=== PATIENT | male | born 1960 | race Caucasian/White ===

== ENCOUNTER → 2017-05-24 | Outpatient (CLI) | payer OTHER ==
--- NOTE | 2017-05-24 08:06 | MR ---
EXAMINATION TYPE: MR ankle RT wo con DATE OF EXAM: 05/24/2017 COMPARISON: EXAMINATION TYPE: MR ankle RT wo con DATE OF EXAM: 05/24/2017 COMPARISON: NONE HISTORY: Right ankle pain per order. Additional symptoms of swelling for 3 weeks per patient. Standard multiplanar, multisequence MRI departmental protocol Multiplanar, multisequence images of the right ankle were acquired. FINDINGS: The distal Achilles tendon is intact and felt within normal limits. Visualized plantar fasc ia shows mild surrounding edema near calcaneal insertion. The peroneal brevis and longus tendons are intact and felt within normal limits. Extensor tendons ant eriorly are intact. The flexor tendons along posterior medial aspect of the ankle are intact. The FHL near posterior tibi otalar shows focus of increased signal sagittal image 8 could reflect focal partial tear at this leve l. There is oblique minimally displaced fracture through distal fibular diaphysis above mortise with ass ociated osseous contusion or bone marrow edema involving nearly entire visualized fibula. Medial and lateral malleoli are intact. Ankle mortise symmetry is preserved. There is associated intramuscular e andre involving the FHL muscle lateral fibers and some adjacent edema superiorly involving the posteri or lateral aspect of the EDL muscle fibers seen best axial image 39. Adjacent tibia is unremarkable. Anterior tibiofibular ligament is intact axial image 24. The anterior talofibular ligament is intact axial image 21. Medial deltoid ligament is intact. No significant soft tissue swelling at lateral mal leolus is seen. There is felt some loss of normal sinus tarsi fat, that remains present seen best sag ittal image 11. Hindfoot articulations are maintained. No suspicious edema at this level is seen. IMPRESSION: 1. There is acute minimally displaced transverse fracture distal fibular diaphysis with associated os seous contusion and adjacent intramuscular edema.
== END | disposition home or self-care (01) ==
LOC: RADMRIMAIN 07:00
PROVIDERS: ATTEND Family Medicine
DX: S82.421A Displaced transverse fracture of shaft of right fibula, initial encounter for closed fracture (principal)

== ENCOUNTER → 2022-02-27 | Outpatient (CLI) | payer OTHER ==
--- NOTE | 2022-02-27 10:17 | CT ---
EXAMINATION TYPE: CT angio chest DATE OF EXAM: 02/27/2022 COMPARISON: NONE HISTORY: Difficulty breathing upon exertion x6 months. CT DLP: 461.1 mGycm. Automated Exposure Control for Dose Reduction was Utilized. CONTRAST: CTA scan of the thorax is performed with IV Contrast, patient injected with 64ml mL of Isovue 370, pu lmonary embolism protocol. MIP Images are created on CT scanner and reviewed. FINDINGS: LUNGS: The lungs are grossly clear, there is no concerning parenchymal mass or nodule identified. T here is no pleural effusion or pneumothorax seen. The tracheobronchial tree is patent. MEDIASTINUM: There is satisfactory enhancement of the pulmonary artery and its branches, there is no CT evidence for pulmonary embolism. There are no greater than 1 cm hilar or mediastinal lymph nodes. No cardiomegaly or pericardial effusion is seen. At least moderate three-vessel coronary artery ca lcification which is noted marker for underlying coronary artery disease. OTHER: Slight scoliotic curvature in the thoracic spine. Small degree of subareolar gynecomastia is p resent bilaterally slightly more prominent on the left. IMPRESSION: No CTA evidence for acute pulmonary embolism. No acute pulmonary process.
== END | disposition home or self-care (01) ==
LOC: RADCTMAIN 08:54
PROVIDERS: ATTEND Internal Medicine Critical Care Medicine
DX: I26.99 Other pulmonary embolism without acute cor pulmonale (principal)
CPT/HCPCS: 71275; Q9967

== ENCOUNTER → 2022-03-28 | Outpatient (CLI) | payer OTHER ==
[2022-03-28 23:48] LABS: HCT 44.9 % (39.6-50.0); MCH 31.4 pg (27.0-32.0); MCHC 33.4 g/dL (32.0-37.0); MCV 94.1 fL (80.0-97.0); Mean Platelet Volume 10.1 fL (9.5-12.2); NRBC Per 100 WBC 0 /100 WBCS (0.0-0.0); Platelet Count 330 X 10*3/uL (140-440); RBC 4.77 X 10*6/uL (4.40-5.60); RDW 12.8 % (11.5-14.5); WBC 5.45 X 10*3/uL (4.50-10.00)
[2022-03-29 00:03] LABS: ALT 94 U/L (10-49); AST 39 U/L (14-35); BUN/Creat Ratio 13.67 Ratio (12.00-20.00); Blood Urea Nitrogen 12.3 mg/dL (9.0-27.0); Carbon Dioxide 25.4 mmol/L (20.0-27.5); Chloride 102 mmol/L (96-109); Chol/HDL Ratio 6.32 Ratio; Glucose 100 mg/dL (70-110); LDL Cholesterol,Calculated 153.3 mg/dL (0.0-131.0); Non-African American GFR(CKD) 90.6 (60.0-200.0); Potassium 4.7 mmol/L (3.5-5.5); Sodium 138 mmol/L (135-145)
== END | disposition home or self-care (01) ==
LOC: LABWHC1 15:25
PROVIDERS: ATTEND Internal Medicine Cardiovascular Disease
DX: E78.2 Mixed hyperlipidemia (principal); R94.39 Abnormal result of other cardiovascular function study
CPT/HCPCS: 36415; 80048; 80061; 84450; 84460; 85027

== ENCOUNTER 2022-03-29 06:56 | Day surgery (SDC) | payer OTHER ==
[~2022-03-29 06:56] MED LIST: ALPRAZolam 0.25 MG TAB PO PRN; ALPRAZolam 0.5 MG TAB PO PRN; ASPIRIN 325 MG TAB PO STA; NITROGLYCERIN SL TABS 0.4 MG TAB SUBLINGUAL PRN; SODIUM CHLORIDE 0.9% 1,000 ML in EMPTY BAG 1 BAG IV SCH
[2022-03-29] MEDS ORDERED: SODIUM CHLORIDE 0.9% 1,000 ML IV ONE ×2 (07:33→10:51)
[2022-03-29 07:37] LABS: Basophils # (A) 0.1 k/uL (0-0.2); Basophils % (A) 1 %; Eosinophils # (A) 0.2 k/uL (0-0.7); Eosinophils % (A) 4 %; HCT 43.1 % (39.0-53.0); Lymphocytes # (A) 1.3 k/uL (1.0-4.8); Lymphocytes % (A) 26 %; MCH 32.1 pg (25.0-35.0); MCHC 34.8 g/dL (31.0-37.0); Mean Platelet Volume 7.4; Monocytes # (A) 0.4 k/uL (0-1.0); Monocytes % (A) 8 %; Neutrophils # (A) 2.9 k/uL (1.3-7.7); Neutrophils % (A) 57 %; Platelet Count 301 k/uL (150-450); RBC 4.68 m/uL (4.30-5.90); RDW 13.1 % (11.5-15.5); WBC 5.1 k/uL (3.8-10.6)
[2022-03-29 07:46] LABS: African American GFR (CKD) >90 (>60 ml/min/1.73 sqM); Anion Gap 8 mmol/L; Blood Urea Nitrogen 19 mg/dL (9-20); Calcium 9.3 mg/dL (8.4-10.2); Carbon Dioxide 25 mmol/L (22-30); Chloride 107 mmol/L (98-107); Glucose 109 mg/dL (74-99); Non-African American GFR(CKD) >90 (>60 ml/min/1.73 sqM); Potassium 4.1 mmol/L (3.5-5.1); Sodium 140 mmol/L (137-145)
[2022-03-29] MEDS ORDERED: VERAPAMIL 2.5 MG/ML 2 ML AMP ONE (08:46)
[2022-03-29] MEDS ORDERED: fentaNYL (PF) 50 MCG/ML 2 ML AMP ONE (08:57)
[2022-03-29] MEDS ORDERED: LIDOCAINE 1% INJ 10MG/ML (5 ML VIAL-PF) SQ ONE (09:04)
[2022-03-29] MEDS ORDERED: MIDAZOLAM 2 MG/2 ML VIAL IV ONE (09:04)
[2022-03-29] MEDS ORDERED: fentaNYL (PF) 50 MCG/ML 2 ML AMP IV ONE (09:04)
[2022-03-29] MEDS ORDERED: HEPARIN SODIUM 1,000 UN/ML (10ML VL) IV ONE (09:13)
[2022-03-29] MEDS ORDERED: VERAPAMIL SYRINGE (5 MG/10 ML) INTRAARTER ONE (09:13)
[2022-03-29] MEDS ORDERED: PRASUGREL 10 MG TAB ONE (09:42)
[2022-03-29] MEDS: HEPARIN SODIUM 1,000 UN/ML (10ML VL) ONE ×5 (09:45→10:51)
[2022-03-29] MEDS ORDERED: PRASUGREL 10 MG TAB PO ONE (09:48)
[2022-03-29] MEDS: NITROGLYCERIN 1000MCG/10ML SYRINGE INTRACORON ONE ×2 (10:15→10:38)
[2022-03-29] MEDS ORDERED: HEPARIN SODIUM 1,000 UN/ML (10ML VL) ONE (10:50)
[2022-03-29] MEDS ORDERED: IOPAMIDOL-300 100ML BTL INJ ONE ×2 (10:52)
--- NOTE | 2022-03-29 11:06 | CC ---
CARDIAC CATHETERIZATION REPORT INDICATION: Unstable angina. PROCEDURE NOTE: After obtaining informed consent, left heart catheterization and coronary angiogram were performed via the right radial artery using size 3.5 right and left Akiko catheters. Hemodynamics were obtained using 3.5 right Akiko catheter. The patient tolerated the procedure well without any obvious immediate complications. The patient received moderate conscious sedation. Total sedation time was 22 minutes. Using modified Seldinger technique, right radial artery access was obtained and a 6- Cameroonian sheath was placed. Catheters and wires were floated into the ascending aorta under fluoroscopic guidance. The patient received 5 mg of verapamil and 5000 units of intravenous heparin per protocol. FINDINGS: 1. Hemodynamics: Left ventricular end-diastolic pressure is 14 mmHg. There is no significant gradient across the aortic valve. 2. Left ventriculogram: Left ventriculogram is not done. 3. Angiographic data: a.Right coronary artery is a large dominant vessel that shows a 60% to 70% stenosis as it bifurcates into PDA and PLV. Left main coronary artery is a normal-sized vessel and is free of stenosis, divides into left anterior descending coronary artery and circumflex coronary artery. Proximal LAD has a long area of stenosis that at its worst seems to be 95% with an area of plaque rupture. Circumflex coronary artery itself is free of significant disease. It gives off a large- caliber OM branch. The first OM has a 70% to 80% ostial stenosis. CONCLUSION: 95% stenosis involving proximal LAD, 60% to 70% stenosis involving distal RCA, and a 70% stenosis involving the OM branch. I talked to the patient about his treatment options including multivessel angioplasty versus bypass surgery with the patient, and I have opted for angioplasty with stent placement of proximal LAD with or without intervention of the right coronary artery and optimal medical therapy. The patient understands all the issues and is in agreement with the plans. MMODL / IJN: [id number] /
--- NOTE | 2022-03-29 11:10 | LTR ---
Dear Dr. Leigh: I performed cardiac catheterization on Robnison Lopez. A detailed catheterization note is enclosed for your records. This 61-year-old gentleman was sent to us by you for new onset exertional shortness of breath. He underwent a stress test, where he walked for 7 minutes on Geovanny protocol without chest pain and significant EKG changes due to which I performed a cardiac catheterization on him expeditiously, which revealed critical stenosis involving proximal LAD for which he will undergo angioplasty with stent placement. Thank you for giving us the privilege to participate in the care of this pleasant gentleman. MMMARYL / IJN: [id number] /
[2022-03-29] MEDS ORDERED: ZOLPIDEM 5 MG TAB PO PRN (11:59)
[2022-03-29] MEDS ORDERED: ATROPINE SULFATE 0.1 MG/ML 10ML SYRINGE IV PRN (11:59)
[2022-03-29] MEDS ORDERED: MAG HYDROX/AL HYDROX/SIMETH 30 ML CUP PO PRN (11:59)
[2022-03-29] MEDS ORDERED: RX INFO: IV CONTRAST WAS GIVEN 1 EACH MISC MISCELLANE PRN (11:59)
[2022-03-29 14:33] VITALS: BMI 29.7
[2022-03-29] MEDS: METOPROLOL TARTRATE 12.5 MG TAB PO SCH (20:08)
[2022-03-29] MEDS ORDERED: ATORVASTATIN 80 MG TAB PO SCH (21:00)
--- NOTE | 2022-03-29 21:27 | P.PRCINT ---
Percutaneous Coronary Int. - Percutaneous Coronary Intervention Percutaneous Coronary Intervention: PROCEDURES PERFORMED: Left coronary angiography, s/p cutting balloon angioplasty, PCI proximal LAD 3.5 x 15mm Xience CORDELL, post dilated with a 4.0 NC balloon, IVUS INDICATION: Abnormal stress test, unstable angina new over last few months PROCEDURE: After the risks, benefits and alternatives of the above mentioned procedure explained in detail with the patient, informed consent was obtained. Patient was taken to the catheterization lab and prepped and draped in usual fashion. A 6 Fr sheath had previously been placed in the right radial artery. Diagnostic images showed obstructive disease of LAD and small to moderate caliber OM1 as well as borderline 60-70% RCA disease. The decision was made to perform PCI of the LAD. Heparin was given for ACT > 250. A 6Fr CLS 3.5 guide was used to engage the left main. A 0.014 BMW wire was placed in the distal LAD. A 2nd BMW wire then a whisper wire were attempted to pass into the diagonal branch however given angle with plaque biasing wiring, was unable to wire easily. Next predilation was performed with a 3.0 x 12 then 3.0 x 15mm NC balloon. There was significant recoil with fibrotic lesion and therefore Angiosculpt cutting balloon was used with a 3.5 x 15mm balloon. Next a 3.5 x 15mm Xience CORDELL was placed. The proximal portion of the stent was post dilated with a 4.0 NC balloon. Next IVUS was performed which showed diffuse mild CAD with reference vessel approximately 3.25-3.5, with excellent stent apposition, no dissection. The wire was pulled and final angiograms were performed. The right radial sheath was removed and a TR band was placed with hemostasis achieved. The patient tolerated the procedure well. Patient was transported back to the post catheterization holding area in stable condition. Conscious Sedation: Patient was monitored under the direct supervision of vision of myself for conscious sedation using Versed and fentanyl for a total duration of 63 minutes HEMODYNAMICS: Aorta: 110/71 SELECTIVE CORONARY ARTERIOGRAPHY: LEFT MAIN: The left main is a large caliber vessel which trifurcates into the LAD, a ramus and circumflex. There is no significant stenosis. LEFT ANTERIOR DESCENDING CORONARY ARTERY: LAD is a large caliber vessel which wraps around to the apex. There is a 95% proximal LAD stenosis followed by diffuse 30-40% mid and distal LAD stenoses. The proximal LAD lesion involves a diagonal 1 small caliber vessel with 95% ostial diagonal stenosis. RAMUS INTERMEDIUS: The ramus is moderate caliber and has proximal 30% stenosis LEFT CIRCUMFLEX CORONARY ARTERY: Left circumflex is a moderate to large caliber vessel. The circumflex has proximal 30% stenosis and a small to moderate caliber ostial OM1 80% stenosis, OM2 40% stenosis. RIGHT CORONARY ARTERY: The right coronary artery was not imaged however has diffuse 20% stenosis and a more focal distal RCA 60-70% stenosis. FINAL IMPRESSION: 1. CAD as described above including 95% proximal LAD, OM1 80%, distal RCA 60- 70% stenosis. 2. S/p PCI proximal LAD 3.5 x 15mm Xience CORDELL, post dilated with a 4.0 NC balloon PLAN: 1. Aggressive risk factor modification per most recent ACC/AHA guidelines. 2. Continue dual antiplatelets with aspirin and Effient for 12 months. 3. Given location of ostial OM1 lesion may consider treating medically unless having persistent angina. If continued angina, consider stress testing or iFR RCA.
[2022-03-30] MEDS ORDERED: LEVOTHYROXINE 100 MCG TAB PO SCH (06:30)
[2022-03-30 08:03] LABS: Basophils % (A) 1 %; Eosinophils # (A) 0.1 k/uL (0-0.7); Eosinophils % (A) 2 %; HCT 41.5 % (39.0-53.0); HGB 14.4 gm/dL (13.0-17.5); Lymphocytes # (A) 0.8 k/uL (1.0-4.8); Lymphocytes % (A) 16 %; MCH 32.4 pg (25.0-35.0); MCHC 34.8 g/dL (31.0-37.0); MCV 93.2 fL (80.0-100.0); Mean Platelet Volume 7.4; Monocytes # (A) 0.5 k/uL (0-1.0); Monocytes % (A) 9 %; Neutrophils # (A) 3.5 k/uL (1.3-7.7); Neutrophils % (A) 68 %; Platelet Count 253 k/uL (150-450); RBC 4.46 m/uL (4.30-5.90); RDW 13.3 % (11.5-15.5); WBC 5.2 k/uL (3.8-10.6)
[2022-03-30 08:24] LABS: African American GFR (CKD) >90 (>60 ml/min/1.73 sqM); Anion Gap 5 mmol/L; Blood Urea Nitrogen 13 mg/dL (9-20); Carbon Dioxide 25 mmol/L (22-30); Chloride 109 mmol/L (98-107); Glucose 108 mg/dL (74-99); Non-African American GFR(CKD) >90 (>60 ml/min/1.73 sqM); Sodium 139 mmol/L (137-145)
[2022-03-30] MEDS: METOPROLOL TARTRATE 12.5 MG TAB PO SCH (08:34)
[2022-03-30 08:59] VITALS: RESP 17
[2022-03-30] MEDS ORDERED: PRASUGREL 10 MG TAB PO SCH (09:00)
[2022-03-30] MEDS ORDERED: ASPIRIN 81 MG PO SCH (09:00)
[2022-03-30 09:01] VITALS: BP 150/76; PULSE 63; TEMP 97.7
--- NOTE | 2022-03-30 11:14 | DS ---
DISCHARGE SUMMARY PROCEDURES PERFORMED: 1. Left heart catheterization. 2. Angioplasty with stent placement of LAD. HOSPITAL COURSE: This is a 61-year-old gentleman, who presented to me with symptoms of unstable angina, underwent cardiac catheterization that revealed severe stenosis involving proximal LAD for which he underwent angioplasty. He has an intermediate lesion in the distal right coronary artery, which will be treated with medical therapy at this time, and if he has persistent symptoms of angina, will undergo iFR. This morning, the patient is doing well and is free of symptoms, ambulating without any problems. PHYSICAL EXAMINATION: VITAL SIGNS: Stable. NECK: There is no jugular venous distention. Carotid upstroke is normal. CHEST: Reveals good air entry bilaterally. HEART: Reveals first and second heart sounds. No gallop. ABDOMEN: Soft. EXTREMITIES: Did not reveal any edema. Right radial artery access site appears normal. LABORATORY DATA: Labs show that the hemoglobin is 14.4, platelet count is 250, potassium is 4, creatinine is 0.7. MEDICATIONS AT DISCHARGE: 1. Aspirin. 2. Prasugrel. 3. Sublingual nitroglycerin on a p.r.n. basis. 4. Lipitor 80 mg daily. 5. Metoprolol. 6. Imdur 30 mg daily. FOLLOWUP: He will be followed up in my office in a week's time. MMODL / IJN: [id number] /
== END 2022-03-30 10:21 | disposition home or self-care (01) ==
LOC: CATHCVL 06:56 → 3SCARD 10:53 → CATHCVL 03-30 10:21
PROVIDERS: ATTEND Internal Medicine Cardiovascular Disease
DX: I25.110 Atherosclerotic heart disease of native coronary artery with unstable angina pectoris (principal); Z79.01 Long term (current) use of anticoagulants; Z79.02 Long term (current) use of antithrombotics/antiplatelets; Z79.82 Long term (current) use of aspirin; Z79.891 Long term (current) use of opiate analgesic; Z79.811 Long term (current) use of aromatase inhibitors
CPT/HCPCS: 92978; 93458; 80048 ×2; 85025 ×2; C9600; C1769 ×4; C1887; C1894; C1725 ×4; C1753; C1874; J2250; J2001; J3010; J1644; Q9967

== ENCOUNTER → 2022-04-12 | Outpatient (CLI) | payer OTHER ==
--- NOTE | 2022-04-12 11:27 | US ---
EXAMINATION TYPE: US thyroid st tissue head/neck DATE OF EXAM: 04/12/2022 COMPARISON: 01/09/2017 CLINICAL HISTORY: E03.9 HYPOTHYROIDISM. Hypothyroidism. Patient is on synthroid. GLAND SIZE: Right Lobe: 4.1 x 1.5 x 1.2 cm Overall Parenchyma: homogenous Left Lobe: 4.7 x 1.4 x 1.4 cm Overall Parenchyma: homogeneous Isthmus Thickness: 0.41 cm NODULES RIGHT: # of nodules measured on right: 1 1. 0.7 X 0.7 x 0.8 cm, mid mid, solid or almost completely solid, hypoechoic nodule, unclear if chuckie ler than wide, with ill-defined margins, without echogenic foci. Prior size: Not present -Significant posterior shadowing noted. LEFT: # of nodules measured on left: 1 1. 0.9 X 0.7 x 0.6 cm, upper medial, solid or almost completely solid, hypoechoic nodule, which is wider than tall, with smooth margins, without echogenic foci. Prior size: 0.7 x 0.5 x 0.7 cm ISTHMUS: # of nodules measured in the isthmus: 0 Bilateral neck scanned, no evidence of lymphadenopathy. IMPRESSION: 1. New right lobe thyroid nodule measuring 0.7 x 0.7 x 0.8 cm. There is significant posterior shadowi ng which significantly limits characterization. Thus, it is difficult to assign TR 4 versus TR 5. Giv en size less than 1 cm, follow-up ultrasound should be performed in one year. 2. Stable TR 4 left lobe thyroid nodule. Given size less than 1 cm, no follow-up is necessary.
== END | disposition home or self-care (01) ==
LOC: RADUSWWP 10:08
PROVIDERS: ATTEND Family Medicine
DX: E04.2 Nontoxic multinodular goiter (principal); E03.9 Hypothyroidism, unspecified
CPT/HCPCS: 76536

== ENCOUNTER 2022-10-23 08:09 | Inpatient (IN) | payer OTHER ==
[2022-10-23] MEDS ORDERED: NITROGLYCERIN OINT 1 INCH/GM PACKET TOPICAL STA (08:47)
[2022-10-23] MEDS ORDERED: ASPIRIN 81 MG PO STA (08:47)
--- NOTE | 2022-10-23 08:52 | ED ---
General Adult HPI - General Chief complaint: Chest Pain Stated complaint: sob, chest pain Time Seen by Provider: 10/23/22 08:20 Source: patient, RN notes reviewed, old records reviewed Mode of arrival: ambulatory Limitations: no limitations - History of Present Illness Initial comments: This is a 61-year-old male who presents emergency Department complaining of chest pain on and off for a week. Patient states she's also become very short of breath this morning he went out walking his dog and felt like he ran a marathon. Patient states this is the exact same symptoms he had back in April when they had to put a stent in his heart. Patient denies any diabetes high blood pressure high cholesterol or smoking. Patient states he doesn't very strong family history of heart disease. Patient denies any abdominal pain patient denies nausea vomiting diarrhea. Patient denies any lightheadedness dizziness. Patient denies any numbness or weakness. - Related Data Home Medications Medication Instructions Recorded Confirmed Aspirin 81 mg PO DAILY 03/28/22 10/23/22 Levothyroxine Sodium [Synthroid] 100 mcg PO DAILY 03/28/22 10/23/22 Isosorbide Mononitrate ER [Imdur] 30 mg PO DAILY 10/23/22 10/23/22 Metoprolol Succinate (ER) [Toprol 25 mg PO DAILY 10/23/22 10/23/22 Xl] Previous Rx's Medication Instructions Recorded Atorvastatin Calcium [Lipitor] 80 mg PO HS #90 tablet 03/30/22 Nitroglycerin Sl Tabs [Nitrostat] 0.4 mg SUBLINGUAL Q5M PRN #100 tab 03/30/22 Prasugrel [Effient] 10 mg PO DAILY #90 tablet 03/30/22 Allergies Allergy/AdvReac Type Severity Reaction Status Date / Time No Known Allergies Allergy Verified 10/23/22 08:57 Review of Systems ROS Statement: Those systems with pertinent positive or pertinent negative responses have been documented in the HPI. ROS Other: All systems not noted in ROS Statement are negative. Past Medical History Past Medical History: No Reported History, Thyroid Disorder History of Any Multi-Drug Resistant Organisms: None Reported Past Surgical History: Appendectomy, Heart Catheterization With Stent Additional Past Surgical History / Comment(s): stent april 2022. Past Anesthesia/Blood Transfusion Reactions: No Reported Reaction Past Psychological History: No Psychological Hx Reported Smoking Status: Former smoker Past Alcohol Use History: Occasional Past Drug Use History: Marijuana - Past Family History Mother Additional Family Medical History / Comment(s): due to alcoholism General Exam - General Exam Comments Initial Comments: GENERAL: Patient is well-developed and well-nourished. Patient is nontoxic and well- hydrated and is in mild distress. ENT: Neck is soft and supple. No significant lymphadenopathy is noted. Oropharynx is clear. Moist mucous membranes. Neck has full range of motion without eliciting any pain. EYES: The sclera were anicteric and conjunctiva were pink and moist. Extraocular movements were intact and pupils were equal round and reactive to light. Eyelids were unremarkable. PULMONARY: Unlabored respirations. Good breath sounds bilaterally. No audible rales rhonchi or wheezing was noted. CARDIOVASCULAR: There is a regular rate and rhythm without any murmurs gallops or rubs. ABDOMEN: Soft and nontender with normal bowel sounds. SKIN: Skin is clear with no lesions or rashes and otherwise unremarkable. NEUROLOGIC: Patient is alert and oriented x3. Cranial nerves II through XII are grossly intact. Motor and sensory are also intact. Normal speech, volume and content. Symmetrical smile. MUSCULOSKELETAL: Normal extremities with adequate strength and full range of motion. No lower extremity swelling or edema. No calf tenderness. LYMPHATICS: No significant lymphadenopathy is noted PSYCHIATRIC: Normal psychiatric evaluation. Limitations: no limitations Course Vital Signs 10/23/22 10/23/22 10/23/22 08:16 09:03 10:00 Temperature 98 F Pulse Rate 60 59 L 74 Respiratory 18 14 16 Rate Blood Pressure 134/83 131/90 140/96 O2 Sat by Pulse 98 98 96 Oximetry Medical Decision Making - Medical Decision Making EKG was interpreted by myself. EKG shows a sinus rhythm at 60 bpm NM interval is 180 QRSs 102 QT interval is 400 QTC is 402. Patient's EKG shows no ST segment elevation or depression. Was pt. sent in by a medical professional or institution (, PA, FLAME HARDENING MACHINE OPERATOR, urgent care, hospital, or longterm...) When possible be specific @ -No Did you speak to anyone other than the patient for history (EMS, parent, family, police, friend...)? What history was obtained from this source @ -No Did you review nursing and triage notes (agree or disagree)? Why? @ -I reviewed and agree with nursing and triage notes Were old charts reviewed (outside hosp., previous admission, EMS record, old EKG, old radiological studies, urgent care reports/EKG's, longterm records)? Report findings @ -I reviewed prior charts prior labwork on this patient Differential Diagnosis (chest pain, altered mental status, abdominal pain women, abdominal pain men, vaginal bleeding, weakness, fever, dyspnea, syncope, headache, dizziness, GI bleed, back pain, seizure, CVA, palpatations, mental health, musculoskeletal)? @ -Differential Chest Pain: Stable Angina, Unstable Angina, STEMI, NSTEMI Aortic Dissection, Pneumothorax, Musculoskeletal, Esophageal Spasm GERD, Cholecystitis, Pancreatitis, Zoster, this is not meant to be an all-inclusive list. EKG interpreted by me (3pts min.). @ -As above X-rays interpreted by me (1pt min.). @ -Chest x-ray showed no acute abnormality CT interpreted by me (1pt min.). @ -None done U/S interpreted by me (1pt. min.). @ -None done What testing was considered but not performed or refused? (CT, X-rays, U/S, labs)? Why? @ -None What meds were considered but not given or refused? Why? @ -None Did you discuss the management of the patient with other professionals (professionals i.e. , PA, FLAME HARDENING MACHINE OPERATOR, lab, RT, psych nurse, social media editor, attorney lawyer, teacher, chief lifestyle officer, case operator)? Give summary @ -I spoke with sounds physician's agreed to admit the patient admitted the patient wrote admitting orders Was smoking cessation discussed for >3mins.? @ -No Was critical care preformed (if so, how long)? @ -No Were there social determinants of health that impacted care today? How? (Homelessness, low income, unemployed, alcoholism, drug addiction, transportation, low edu. Level, literacy, decrease access to med. care, longterm, rehab)? @ -No Was there de-escalation of care discussed even if they declined (Discuss DNR or withdrawal of care, Hospice)? DNR status @ -No What co-morbidities impacted this encounter? (DM, HTN, Smoking, COPD, CAD, Cancer, CVA, ARF, Chemo, Hep., AIDS, mental health diagnosis, sleep apnea, morbid obesity)? @ -Hypertension, high cholesterol, CAD Was patient admitted / discharged? Hospital course, mention meds given and route, prescriptions, significant lab abnormalities, going to OR and other pertinent info. @ -Patient had no chest pain while in the emergency department but his symptoms were significant and similar to the prior symptoms he had when he had an [place]. He states initial troponin was negative I will repeat those troponin levels. I spoke with sounds physician's he agreed to admit the patient admitted the patient wrote admitting orders and I consult to cardiology Undiagnosed new problem with uncertain prognosis? @ -No Drug Therapy requiring intensive monitoring for toxicity (Heparin, Nitro, Insulin, Cardizem)? @ -No Were any procedures done? @ -No Diagnosis/symptom? @ -Chest pain Acute, or Chronic, or Acute on Chronic? @ -Acute Uncomplicated (without systemic symptoms) or Complicated (systemic symptoms)? @ -Complicated Side effects of treatment? @ -No Exacerbation, Progression, or Severe Exacerbation? @ -No Poses a threat to life or bodily function? How? (Chest pain, [place], [place], pneumonia, PE, COPD, DKA, ARF, appy, cholecystitis, CVA, Diverticulitis, Homicidal, Suicidal, threat to staff... and all critical care pts) @ -Yes this could lead to [place] which could lead to end organ dysfunction - Lab Data Result diagrams: 10/23/22 08:57 10/23/22 08:57 Lab Results 10/23/22 10/23/22 10/23/22 Range/Units 08:57 08:57 08:57 WBC 5.8 (3.8-10.6) k/uL RBC 4.55 (4.30-5.90) m/uL Hgb 14.7 (13.0-17.5) gm/dL Hct 42.4 (39.0-53.0) % MCV 93.0 (80.0-100.0) fL MCH 32.3 (25.0-35.0) pg MCHC 34.7 (31.0-37.0) g/dL RDW 13.0 (11.5-15.5) % Plt Count 258 (150-450) k/uL MPV 7.4 Neutrophils % 58 % Lymphocytes % 24 % Monocytes % 9 % Eosinophils % 5 % Basophils % 1 % Neutrophils # 3.4 (1.3-7.7) k/uL Lymphocytes # 1.4 (1.0-4.8) k/uL Monocytes # 0.5 (0-1.0) k/uL Eosinophils # 0.3 (0-0.7) k/uL Basophils # 0.0 (0-0.2) k/uL PT 10.1 (9.0-12.0) sec INR 0.9 (<1.2) APTT 23.8 (22.0-30.0) sec D-Dimer 0.22 (<0.60) mg/L FEU Sodium 139 (137-145) mmol/L Potassium 4.3 (3.5-5.1) mmol/L Chloride 109 H (98-107) mmol/L Carbon Dioxide 21 L (22-30) mmol/L Anion Gap 9 mmol/L BUN 16 (9-20) mg/dL Creatinine 0.70 (0.66-1.25) mg/dL Est GFR (CKD-EPI)AfAm >90 (>60 ml/min/1.73 sqM) Est GFR (CKD-EPI)NonAf >90 (>60 ml/min/1.73 sqM) Glucose 112 H (74-99) mg/dL Calcium 9.3 (8.4-10.2) mg/dL Magnesium 2.2 (1.6-2.3) mg/dL Total Bilirubin 0.5 (0.2-1.3) mg/dL AST 59 (17-59) U/L ALT 82 H (4-49) U/L Alkaline Phosphatase 81 (38-126) U/L Troponin I (0.000-0.034) ng/mL NT-Pro-B Natriuret Pep <20 pg/mL Total Protein 7.1 (6.3-8.2) g/dL Albumin 4.3 (3.5-5.0) g/dL 10/23/22 Range/Units 08:57 WBC (3.8-10.6) k/uL RBC (4.30-5.90) m/uL Hgb (13.0-17.5) gm/dL Hct (39.0-53.0) % MCV (80.0-100.0) fL MCH (25.0-35.0) pg MCHC (31.0-37.0) g/dL RDW (11.5-15.5) % Plt Count (150-450) k/uL MPV Neutrophils % % Lymphocytes % % Monocytes % % Eosinophils % % Basophils % % Neutrophils # (1.3-7.7) k/uL Lymphocytes # (1.0-4.8) k/uL Monocytes # (0-1.0) k/uL Eosinophils # (0-0.7) k/uL Basophils # (0-0.2) k/uL PT (9.0-12.0) sec INR (<1.2) APTT (22.0-30.0) sec D-Dimer (<0.60) mg/L FEU Sodium (137-145) mmol/L Potassium (3.5-5.1) mmol/L Chloride (98-107) mmol/L Carbon Dioxide (22-30) mmol/L Anion Gap mmol/L BUN (9-20) mg/dL Creatinine (0.66-1.25) mg/dL Est GFR (CKD-EPI)AfAm (>60 ml/min/1.73 sqM) Est GFR (CKD-EPI)NonAf (>60 ml/min/1.73 sqM) Glucose (74-99) mg/dL Calcium (8.4-10.2) mg/dL Magnesium (1.6-2.3) mg/dL Total Bilirubin (0.2-1.3) mg/dL AST (17-59) U/L ALT (4-49) U/L Alkaline Phosphatase (38-126) U/L Troponin I <0.012 (0.000-0.034) ng/mL NT-Pro-B Natriuret Pep pg/mL Total Protein (6.3-8.2) g/dL Albumin (3.5-5.0) g/dL Disposition Clinical Impression: Chest pain Disposition: ADMITTED IP TO THIS HOSP Referrals: Oscar Bates MD [Primary Care Provider] - 1-2 days Time of Disposition: 10:34
[2022-10-23 09:37] LABS: Basophils % (A) 1 %; Eosinophils # (A) 0.3 k/uL (0-0.7); Eosinophils % (A) 5 %; HCT 42.4 % (39.0-53.0); HGB 14.7 gm/dL (13.0-17.5); Lymphocytes # (A) 1.4 k/uL (1.0-4.8); Lymphocytes % (A) 24 %; MCH 32.3 pg (25.0-35.0); MCHC 34.7 g/dL (31.0-37.0); Mean Platelet Volume 7.4; Monocytes # (A) 0.5 k/uL (0-1.0); Monocytes % (A) 9 %; Neutrophils # (A) 3.4 k/uL (1.3-7.7); Neutrophils % (A) 58 %; Platelet Count 258 k/uL (150-450); RBC 4.55 m/uL (4.30-5.90); WBC 5.8 k/uL (3.8-10.6)
[2022-10-23 09:43] LABS: ALT 82 U/L (4-49); AST 59 U/L (17-59); African American GFR (CKD) >90 (>60 ml/min/1.73 sqM); Albumin 4.3 g/dL (3.5-5.0); Alkaline Phosphatase 81 U/L (38-126); Anion Gap 9 mmol/L; Blood Urea Nitrogen 16 mg/dL (9-20); Calcium 9.3 mg/dL (8.4-10.2); Carbon Dioxide 21 mmol/L (22-30); Chloride 109 mmol/L (98-107); Glucose 112 mg/dL (74-99); Magnesium 2.2 mg/dL (1.6-2.3); Non-African American GFR(CKD) >90 (>60 ml/min/1.73 sqM); Potassium 4.3 mmol/L (3.5-5.1); Sodium 139 mmol/L (137-145); Total Bilirubin 0.5 mg/dL (0.2-1.3); Total Protein 7.1 g/dL (6.3-8.2)
--- NOTE | 2022-10-23 09:47 | XR ---
EXAMINATION TYPE: XR chest 2V DATE OF EXAM: 10/23/2022 COMPARISON: NONE HISTORY: Shortness of breath TECHNIQUE: Frontal and lateral views of the chest are obtained. FINDINGS: Scattered senescent parenchymal changes noted. No evidence for infiltrate. No evidence for atelectasis. Heart size is stable. Mediastinal structures are stable and grossly unremarkable. No evidence for hilar prominence. Degenerative changes dorsal spine. IMPRESSION: 1. No evidence for acute pulmonary disease.
[2022-10-23 09:51] LABS: INR 0.9 (<1.2); NT-Pro-B-Type Natriuretic Pept <20 pg/mL; Partial Thromboplastin Time 23.8 sec (22.0-30.0); Prothrombin Time 10.1 sec (9.0-12.0)
[2022-10-23] MEDS ORDERED: NITROGLYCERIN SL TABS 0.4 MG TAB SUBLINGUAL PRN ×3 (11:00→12:28)
[2022-10-23] MEDS ORDERED: NITROGLYCERIN OINT 1 INCH/GM PACKET TOPICAL SCH (12:00)
[2022-10-23] MEDS ORDERED: ATORVASTATIN 80 MG TAB PO STA (12:04)
[2022-10-23] MEDS ORDERED: ASPIRIN 325 MG TAB PO STA (12:04)
[2022-10-23] MEDS ORDERED: ALPRAZolam 0.5 MG TAB PO PRN (12:04)
[2022-10-23] MEDS ORDERED: ALPRAZolam 0.25 MG TAB PO PRN (12:04)
[2022-10-23] MEDS ORDERED: HEPARIN SODIUM 1,000 UN/ML (10ML VL) IV PRN (12:05)
[2022-10-23] MEDS ORDERED: HEPARIN SODIUM 1,000 UN/ML (10ML VL) IV ONE (12:05)
[2022-10-23] MEDS ORDERED: HEPARIN SOD,PORK IN 0.45% NACL 25,000 UNIT in 0.45% NACL 1 250ML.BAG IV SCH (12:15)
--- NOTE | 2022-10-23 12:52 | P.HPIM ---
History of Present Illness H&P Date: 10/23/22 History of Presenting Illness: Patient is a very pleasant 61-year-old male with a past medical history of CAD status post stenting of LAD on 03/29/22 on dual antiplatelet therapy with aspirin and Effient, hypertension, hyperlipidemia, and hypothyroidism. Patient presented to the emergency department with a chief complaint of exertional chest pain and shortness of breath. Patient reports he is feeling similar to how he felt prior to having his initial stent placed at the beginning of this year. Patient states he first began to notice feeling more short of breath and tired/winded with normal walking or activity approximately one week ago and believes this has progressively worsened. Patient states he would feel increased tiredness, shortness of breath, and mild pain to his midsternal chest is walking down the drive to his mailbox. 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 P atient reports he has tried to stay active so this exertional shortness of breath and chest discomfort had him concerned. He denies having any other complaints including recent illnesses or exposure to known ill contacts, headache, lightheadedness, dizziness, palpitations, cough or congestion, nausea, vomiting, abdominal pain, or experiencing any numbness/tingling/weakness/swelling in his extremities. He underwent full evaluation in the emergency department. Vital signs reviewed. Temp 98.0F, heart rate 60, respiratory rate 18, blood pressure 134/83, and SpO2 of 98% on room air. Labs completed and reviewed. CBC and coagulation profile were unremarkable. D-dimer negative at 0.22. BMP showing slightly elevated chloride of 109 and low bicarb of 21. Glucose 112. Magnesium normal findings at 2.2. Liver profile normal findings with the exception of elevated ALT of 82. Initial troponin negative at less than 0.012 with proBNP less than 20. EKG completed showing normal sinus rhythm 60 bpm with no noted T-wave or ST abnormalities showing no signs of acute ischemia upon personal review and interpretation. Chest x-ray completed lungs appear clear showing no signs of acute cardiop ulmonary process and radiology report stating negative showing no evidence for acute pulmonary disease. Discussed patient complaints, laboratory analysis, and imaging results in detail with the ED physician. Patient to be admitted under our services to to cardiac unit with telemetry with consultation to cardiology. Review of systems: Pertinent positives and negatives as discussed in HPI, a complete review of systems was performed and all other systems are negative. Physical exam: Vital signs reviewed and stable. General: Nontoxic, no distress and appears stated age. Derm: Skin warm and dry, normal coloration for ethnicity. Head: Atraumatic, normocephalic and symmetric. Eyes: EOMs intact, no lid lag, and anicteric sclera Mouth: no lip lesions, mucus membranes moist Cardiovascular: regular rate and rhythm with normal S1S2, no murmur, positive posterior tibial pulses bilaterally, and cap refill < 2 seconds. Lungs: Respirations even, regular, and unlabored on room air. Lungs CTA bilaterally, no rhonchi, no rales, no wheezing, and no accessory muscle usage. Abdominal: soft, nontender to palpation, no guarding, no appreciable organomegaly Ext: ROM intact. No gross muscle atrophy, no edema, no contractures Neuro: Speech clear, face symmetrical and CN II-XII grossly intact with no noted focal neuro deficits Psych: Alert and oriented to person, place, time, and situation. Appropriate and pleasant affect. Assessment and Plan of Care: Patient is a pleasant 61-year-old male with a past medical history of CAD status post stenting of LAD on 03/29/22 on dual antiplatelet therapy with aspirin and Effient, hypertension, hyperlipidemia, and hypothyroidism. He presented to the emergency department with a chief complaint of exertional chest pain and shortness of breath progressively worsening over the past week. -Vital signs reviewed. Temp 98.0F, heart rate 60, respiratory rate 18, blood pressure 134/83, and SpO2 of 98% on room air. -Labs completed and reviewed. CBC and coagulation profile were unremarkable. D-dimer negative at 0.22. BMP showing slightly elevated chloride of 109 and low bicarb of 21. Glucose 112. Magnesium normal findings at 2.2. Liver profile normal findings with the exception of elevated ALT of 82. Initial troponin negative at less than 0.012 with proBNP less than 20. -EKG completed showing normal sinus rhythm 60 bpm with no noted T-wave or ST abnormalities showing no signs of acute ischemia upon personal review and interpretation. -Chest x-ray completed and personally reviewed lungs appear clear showing no signs of acute cardiopulmonary process and radiology report stating negative showing no evidence for acute pulmonary disease. -Discussed patient complaints, laboratory analysis, and imaging results in detail with the ED physician. -Patient to be admitted under our services to to cardiac unit with telemetry with consultation to cardiology. Unstable angina Exertional Chest pain and shortness of breath, rule out acute coronary event History of CAD status post stenting of LAD 03/29/22 Hypertension Hyperlipidemia -Cardiology consulted, discussed plan of care with cardiac GETTERING OPERATOR and plan is for patient to undergo cardiac cath tomorrow morning. -Patient given heparin bolus 2500 units and started on heparin infusion at 12 units/kg/hr for treatment of unstable angina. -Nitro-Bid Ointment applied -Telemetry monitoring -Trend troponins -Cardiac diet, NPO at midnight -Continue cardiac medication regimen including dual antiplatelet therapy with Aspirin 81 mg daily and Effient 10 mg daily, atorvastatin 80 mg daily, isosorbide mononitrate 30 mg daily and metoprolol 25 mg daily Hypothyroidism -Continue daily medication regimen with level thyroxine 100 g daily. The patient is admitted with an anticipated greater than 2 midnight stay for evaluation of exertional chest pain and shortness of breath CODE STATUS: Full code DVT prophylaxis: Heparin infusion Discussed with: Patient, patient's , ED physician, RN, and cardiac GETTERING OPERATOR Anticipated discharge date: Clinical course to determine Anticipated discharge place: Home Patient was seen independently by Nurse Practitioner. This document was prepared using [employer] dictation software. Please allow for errors in clin nurse while rare they do occur. Kang Garrett NP rendered care for this patient independently, reviewed the findings and plan as documented in the note above. I did not physically speak with or examine the patient on this date. Past Medical History Past Medical History: No Reported History, Thyroid Disorder History of Any Multi-Drug Resistant Organisms: None Reported Past Surgical History: Appendectomy, Heart Catheterization With Stent Additional Past Surgical History / Comment(s): stent april 2022. Past Anesthesia/Blood Transfusion Reactions: No Reported Reaction Past Psychological History: No Psychological Hx Reported Smoking Status: Former smoker Past Alcohol Use History: Occasional Past Drug Use History: Marijuana - Past Family History Mother Additional Family Medical History / Comment(s): due to alcoholism Medications and Allergies Home Medications Medication Instructions Recorded Confirmed Type Aspirin 81 mg PO DAILY 03/28/22 10/23/22 History Levothyroxine Sodium [Synthroid] 100 mcg PO DAILY 03/28/22 10/23/22 History Atorvastatin Calcium [Lipitor] 80 mg PO HS #90 tablet 03/30/22 10/23/22 Rx Nitroglycerin Sl Tabs [Nitrostat] 0.4 mg SUBLINGUAL Q5M PRN #100 tab 03/30/22 10/23/22 Rx Prasugrel [Effient] 10 mg PO DAILY #90 tablet 03/30/22 10/23/22 Rx Isosorbide Mononitrate ER [Imdur] 30 mg PO DAILY 10/23/22 10/23/22 History Metoprolol Succinate (ER) [Toprol 25 mg PO DAILY 10/23/22 10/23/22 History XL] Losartan [Cozaar] 25 mg PO DAILY #90 tab 10/25/22 Rx Allergies Allergy/AdvReac Type Severity Reaction Status Date / Time No Known Allergies Allergy Verified 10/23/22 08:57 Physical Exam Vitals: Vital Signs Temp Pulse Resp BP Pulse Ox 10/23/22 11:00 54 L 14 142/92 96 10/23/22 10:00 74 16 140/96 96 10/23/22 09:03 59 L 14 131/90 98 10/23/22 08:16 98 F 60 18 134/83 98 Intake and Output 10/22/22 10/23/22 10/23/22 22:59 06:59 14:59 Other: Weight 95.254 kg Results CBC & Chem 7: 10/24/22 07:50 10/25/22 05:42 Labs: Abnormal Lab Results - Last 24 Hours (Table) 10/23/22 Range/Units 08:57 Chloride 109 H (98-107) mmol/L Carbon Dioxide 21 L (22-30) mmol/L Glucose 112 H (74-99) mg/dL ALT 82 H (4-49) U/L
[2022-10-23] MEDS: ISOSORBIDE MONONITRATE ER 30 MG TAB.ER.24H PO SCH (13:26)
[2022-10-23] MEDS: PRASUGREL 10 MG TAB PO SCH (13:26)
[2022-10-23] MEDS: METOPROLOL SUCCINATE (ER) 25 MG TAB.ER.24H PO SCH (13:26)
[2022-10-23] MEDS: ATORVASTATIN 80 MG TAB PO SCH (22:07)
--- NOTE | 2022-10-23 23:07 | CONS ---
CONSULTATION HISTORY OF PRESENT ILLNESS: Mr. Robinson Lopez is a 61-year-old gentleman with history of hypertension, hyperlipidemia, and hypothyroidism. He has history of CAD and in March, he underwent a cardiac cath because of an abnormal stress test by Dr. Olmos, which revealed a proximal LAD significant stenosis of about 95% with moderate disease in distal RCA and circumflex. He had a stenting with a cutting balloon off proximal LAD with an excellent result. The distal LAD disease was about 60% and the obtuse marginal disease was also 70%. However, these were not further evaluated by FFR during the initial procedure on March of this year. However, following the March admission, he had a stress test that was normal per patient. He comes into the hospital with 3-day history of increasing shortness of breath and chest tightness with moderate effort strongly suggestive of angina. He is resting comfortably without any symptoms at the time of my evaluation. His initial EKG and troponin are normal, but symptoms strongly suggest unstable angina. PAST MEDICAL HISTORY: 1. CAD with stenting of LAD, has moderate disease in distal RCA and obtuse marginal branch. 2. Hypertension. 3. Hypothyroidism. PHYSICAL EXAMINATION: VITAL SIGNS: On examination, blood pressure is 140/70, pulse rate is about 70 per minute regular. HEENT: Unremarkable. Fundus was not examined by me. NECK: Supple. No JVD. I do not hear a carotid bruit. HEART: Reveals S1, S2 heard normally. No rub, murmur or gallop. LUNGS: Clear. ABDOMEN: Soft, nontender. MUSCULOSKELETAL: Lower extremities revealed normal pulses. No edema. CENTRAL NERVOUS SYSTEM: Normal. DIAGNOSTIC DATA: EKG revealed sinus mechanism, no acute changes. LABORATORY DATA: Laboratory data revealed no significant abnormalities and initial troponin is normal. IMPRESSION: 1. Unstable angina. 2. Hypertension. 3. Hyperlipidemia. 4. Hypothyroidism. 5. Status post stenting of proximal LAD performed by Dr. Saldivar in March of 2022. RECOMMENDATIONS: Given the patient's presentation with unstable angina, I am recommending that he should have a cardiac catheterization. I am recommending intravenous heparin. Resume all his home medications. We will see how he does, but I am recommending cardiac cath tomorrow to be performed by Dr. Olmos. I will speak to him. Risks, benefits, options, rationale were explained to the patient. He understands all details and wishes to proceed with the procedure. MMODL / IJN: [id number] /
[2022-10-24] MEDS: LEVOTHYROXINE 100 MCG TAB PO SCH (06:43)
[2022-10-24] MEDS ORDERED: HEPARIN SODIUM,PORCINE (1 ML) 2,500 UNIT in SODIUM CHLORIDE 0.9% 250 ML IRRIGATION PRN (07:00)
[2022-10-24] MEDS ORDERED: HEPARIN SODIUM,PORCINE 10,000 UNIT in SODIUM CHLORIDE 0.9% 1,000 ML IRRIGATION PRN (07:00)
[2022-10-24] MEDS ORDERED: ASPIRIN 325 MG TAB PO STA (07:59)
[2022-10-24 08:15] LABS: Partial Thromboplastin Time 57.2 sec (22.0-30.0); Prothrombin Time 10.8 sec (9.0-12.0)
[2022-10-24] MEDS ORDERED: ISOSORBIDE MONONITRATE ER 30 MG TAB.ER.24H PO SCH (09:00)
[2022-10-24] MEDS ORDERED: ASPIRIN 81 MG PO SCH (09:00)
[2022-10-24] MEDS ORDERED: METOPROLOL SUCCINATE (ER) 25 MG TAB.ER.24H PO SCH (09:00)
[2022-10-24] MEDS ORDERED: PRASUGREL 10 MG TAB PO SCH (09:00)
[2022-10-24] MEDS ORDERED: ASPIRIN 325 MG TAB PO SCH (09:00)
[2022-10-24] MEDS ORDERED: SODIUM CHLORIDE 0.9% 1,000 ML in EMPTY BAG 1 BAG IV ONE (09:06)
[2022-10-24] MEDS: METOPROLOL SUCCINATE (ER) 25 MG TAB.ER.24H PO SCH (09:10)
[2022-10-24] MEDS: ISOSORBIDE MONONITRATE ER 30 MG TAB.ER.24H PO SCH (09:10)
[2022-10-24] MEDS: PRASUGREL 10 MG TAB PO SCH (09:19)
[2022-10-24] MEDS ORDERED: ADENOSINE 90 MG in SODIUM CHLORIDE 0.9% 60 ML IVP ONE (11:45)
[2022-10-24] MEDS ORDERED: IV FLUID CONTINUATION 1,000 ML IV ONE (11:45)
[2022-10-24] MEDS ORDERED: MIDAZOLAM 2 MG/2 ML VIAL IVP ONE ×2 (12:04→13:41)
[2022-10-24] MEDS ORDERED: fentaNYL (PF) 50 MCG/ML 2 ML AMP IVP ONE ×2 (12:05→13:40)
[2022-10-24] MEDS ORDERED: LIDOCAINE 1% INJ 10MG/ML (5 ML VIAL-PF) SQ ONE (12:07)
[2022-10-24] MEDS ORDERED: VERAPAMIL SYRINGE (5 MG/10 ML) INTRAARTER ONE (12:09)
[2022-10-24] MEDS ORDERED: HEPARIN SODIUM 1,000 UN/ML (10ML VL) IVP ONE ×5 (12:15→13:27)
--- NOTE | 2022-10-24 12:17 | P.PN ---
Subjective Progress Note Date: 10/24/22 History of present illness: This is a 61-year-old male with past history of hypertension, hyperlipidemia, hypothyroidism, coronary artery disease status post cardiac cath in March of this year following abnormal stress test which revealed proximal LAD significant stenosis of 95% with moderate disease in the distal RCA and circumflex. Patient had stenting proximal LAD with excellent results. The distal LAD was about 60% and obtuse marginal 70%. These were not further evaluated by FFR during the in itial procedure in March. Following that, he had a stress test that was normal. Patient presents to the hospital with 3 day history of increasing shortness of breath and chest tightness with moderate effort strongly suggestive of ischemia. Patient has been scheduled for cardiac catheterization today with Dr. Cobb and this has been scheduled 11:30 today. Patient is seen in follow-up on the observation unit. Physical examination: Gen: This is a 61-year-old male. He is resting bed appears to be comfortable and in no acute distress. VS: reviewed HEENT: Head is atraumatic, normocephalic. Pupils equal, round. Sclerae is anicteric. NECK: Supple. No JVD. . LUNGS: Clear to auscultation. No wheezes or rhonchi. No intercostal retractions. HEART: Regular rate and rhythm. No murmur. EXTREMITIES: No pedal edema. NEUROLOGICAL: Patient is awake, alert and oriented x3. Assessment: Unstable angina Hypertension Hyperlipidemia Hypothyroidism History of coronary artery disease prior stenting of the proximal LAD by Dr. Saldivar in March 2022 Plan: Continue current cardiac medications Cardiac catheterization scheduled today at 11:30 Further recommendations to follow based upon clinical course Nurse practitioner note has been reviewed, I agree with documented findings and plan of care. Patient was seen and examined. Objective - Vital Signs Vital signs: Vital Signs Temp 97.8 F 10/24/22 02:40 Pulse 55 L 10/24/22 02:40 Resp 16 10/24/22 02:40 BP 133/72 10/24/22 02:40 Pulse Ox 96 10/24/22 02:40 FiO2 Intake & Output 10/23/22 10/24/22 10/24/22 18:59 06:59 18:59 Intake Total 171.976 Balance 171.976 Weight 95.254 kg Intake: Intake, IV Titration 171.976 Amount Heparin Sod,Pork in 0.45% 171.976 NaCl 25,000 unit In 0.45 % NaCl 1 250ml.bag @ 12 UNITS/KG/HR 11.43 mls/hr IV .[id number] [facility] Rx#: [id number] Other: # Voids 1 - Labs CBC & Chem 7: 10/23/22 08:57 10/23/22 08:57 Labs: Abnormal Lab Results - Last 24 Hours (Table) 10/23/22 10/23/22 10/24/22 Range/Units 08:57 18:17 00:21 APTT 32.1 H 69.6 H (22.0-30.0) sec Chloride 109 H (98-107) mmol/L Carbon Dioxide 21 L (22-30) mmol/L Glucose 112 H (74-99) mg/dL ALT 82 H (4-49) U/L 10/24/22 Range/Units 07:50 APTT 57.2 H (22.0-30.0) sec Chloride (98-107) mmol/L Carbon Dioxide (22-30) mmol/L Glucose (74-99) mg/dL ALT (4-49) U/L
[2022-10-24] MEDS ORDERED: NITROGLYCERIN 1000MCG/10ML SYRINGE INTRACORON ONE ×2 (13:14→13:40)
[2022-10-24] MEDS ORDERED: IOPAMIDOL-370 100ML BTL INJ ONE ×2 (13:34→13:54)
[2022-10-24 13:41] LABS: ALT 82 U/L (10-49); AST 45 U/L (14-35); Albumin 4.1 d/dL (3.8-4.9); Albumin/Globulin Ratio 2.05 Ratio (1.60-3.17); Alkaline Phosphatase 76 U/L (41-126); BUN/Creat Ratio 18.62 Ratio (12.00-20.00); Blood Urea Nitrogen 14.9 mg/dL (9.0-27.0); Calcium 9.2 mg/dL (8.7-10.3); Carbon Dioxide 21.7 mmol/L (21.6-31.8); Chloride 106 mmol/L (96-109); Chol/HDL Ratio 2.94 Ratio; Glucose 108 mg/dL (70-110); LDL Cholesterol,Calculated 49.3 mg/dL (0.0-131.0); Magnesium 2.1 mg/dL (1.5-2.4); Potassium 4.1 mmol/L (3.5-5.5); Sodium 139 mmol/L (135-145); Total Bilirubin 0.5 mg/dL (0.3-1.2); Total Protein 6.1 d/dL (6.2-8.2)
[2022-10-24] MEDS ORDERED: RX INFO: IV CONTRAST WAS GIVEN 1 EACH MISC MISCELLANE PRN (14:15)
[2022-10-24] MEDS ORDERED: SODIUM CHLORIDE 0.9% 1,000 ML in EMPTY BAG 1 BAG IV SCH (14:15)
[2022-10-24] MEDS ORDERED: MAG HYDROX/AL HYDROX/SIMETH 30 ML CUP PO PRN (14:15)
[2022-10-24] MEDS ORDERED: ZOLPIDEM 5 MG TAB PO PRN (14:15)
[2022-10-24] MEDS ORDERED: ATROPINE SULFATE 0.1 MG/ML 10ML SYRINGE IV PRN (14:15)
[2022-10-24 14:20] LABS: Basophils # (A) 0.06 X 10*3/uL (0.00-0.10); Eosinophils # (A) 0.32 X 10*3/uL (0.04-0.35); Eosinophils % (A) 5.6 %; HCT 40.8 % (39.6-50.0); HGB 14.1 d/dL (13.0-17.0); Lymphocytes # (A) 1.52 X 10*3/uL (0.90-5.00); Lymphocytes % (A) 26.4 %; MCH 32.1 pg (27.0-32.0); MCHC 34.6 d/dL (32.0-37.0); MCV 92.9 FL (80.0-97.0); Mean Platelet Volume 10.3 FL (9.5-12.2); Monocytes # (A) 0.61 X 10*3/uL (0.20-1.00); Monocytes % (A) 10.6 %; NRBC Per 100 WBC 0 X 10*3/uL (0.00-0.01); Neutrophils # (A) 3.23 X 10*3/uL (1.80-7.70); Neutrophils % (A) 56.2 %; Platelet Count 279 X 10*3/uL (140-440); RBC 4.39 X 10*6/uL (4.40-5.60); RDW 13.1 % (11.5-14.5); WBC 5.75 X 10*3/uL (4.50-10.00)
--- NOTE | 2022-10-24 14:21 | P.PRCINT ---
Percutaneous Coronary Int. - Percutaneous Coronary Intervention Percutaneous Coronary Intervention: PROCEDURES PERFORMED: Bilateral coronary angiography, iFR of LAD, iFR/FFR of RCA, PCI RCA with a 3.5 x 18mm Xience CORDELL, post dilated proximally with a 4.0 NC balloon INDICATION: Unstable angina, history of CAD CONSENT:I have discussed the risks, benefits and alternative therapies for the above-mentioned procedure and for both sedation/analgesia as well as necessary blood product administration, if indicated, as they pertain to this patient. The patient has indicated understanding and acceptance of the risks and procedures discussed. PROCEDURE: After the risks, benefits and alternatives of the above mentioned procedure explained in detail with the patient, informed consent was obtained. Patient was taken to the catheterization lab and prepped and draped in usual fashion and a 6-Senegalese sheath had been placed in the right radial artery previously. The decision was made to perform iFR of the LAD and RCA. Heparin was given. A 6-Senegalese CLS 4.0 guide was used engage the left main. A 0.014 pressure where his advanced in the proximal left main and normalized. It was then advanced to the mid LAD just past the 50th 60% mid LAD stenosis. iFR was performed and was normal at 0.94. Next, the decision was made to perform iFR of the RCA. A 6-[place]egalese AL 0.75 guide was used engage the RCA. A 0.014 pressure wire was advanced into the proximal RCA and normalized. It was then advanced into the distal RCA/PLV just past the lesion. iFR was normal at 0.95 however there were varying numbers even just throughout the 2-3 minutes that the wire was engaged. Therefore concern of more significant lesion. Therefore FFR was performed. With FFR, the lesion was abnormal within approximately 1 minute at 0.72. Therefore the decision was made to perform PCI of RCA. A 3.5 x 12 mm balloon was used to predilate the lesion however significant watermelloning occurred. Therefore a 3.5 and he scoped cutting balloon was used to predilate the lesion which was successful. Next a 3.5 x 18 mm Xience CORDELL was placed at the distal RCA. The proximal portion was postdilated with a 4.0 noncompliant balloon. Preintervention there was 70% stenosis and CAROL-3 flow and postintervention there was less than 10% stenosis with CAROL 3 flow. The right radial sheath was removed and a TR band was placed with hemostasis achieved. The patient tolerated the procedure well. Patient was transported back to the post catheterization holding area in stable condition. Conscious Sedation: Patient was monitored under the direct supervision of myself for conscious sedation using Versed and fentanyl for a total duration of 56 minutes HEMODYNAMICS: Aorta: 141/67 SELECTIVE CORONARY ARTERIOGRAPHY: LEFT MAIN: The left main is a large caliber vessel which bifurcates into the LAD and circumflex. There is no significant stenosis. LEFT ANTERIOR DESCENDING CORONARY ARTERY: LAD is a large caliber vessel which wraps around to the apex. There is a proximal LAD stent which is patent. There is a 95% ostial diagonal 1 stenosis at the jailed diagonal branch which appears similar to prior. Distal to the stent there is a mid LAD 50-60% stenosis followed by tandem 40-50% stenosis. LEFT CIRCUMFLEX CORONARY ARTERY: Left circumflex is a moderate caliber vessel diffuse mild luminal irregularities and OM1 is a ostial 85-90% stenosis.. RIGHT CORONARY ARTERY: The right coronary artery is a large caliber vessel which gives off a PDA and PLV branch and is the dominant vessel. There are diffuse 20-30% proximal and mid RCA stenoses and more focal distal 70% RCA stenosis. FINAL IMPRESSION: 1. CAD as described above including 50-60% mid LAD stenosis, 95% small caliber ostial diagonal 1 "jailed" stenosis, ostial OM1 85-90% stenosis, distal RCA 70% stenosis 2. iFR normal mid LAD 3. FFR abnormal RCA 4. S/p PCI RCA with a 3.5 x 18mm Xience CORDELL, post dilated proximally with a 4.0 NC balloon PLAN: 1. Aggressive risk factor modification per most recent ACC/AHA guidelines. 2. Continue dual antiplatelets with aspirin and Effient for 12 months
--- NOTE | 2022-10-24 15:28 | CC ---
CARDIAC CATHETERIZATION REPORT INDICATION: Unstable angina. PROCEDURE NOTE: After obtaining informed consent, left heart catheterization and coronary angiogram were performed via the right radial artery using standard Akiko catheters. The patient tolerated the procedure well without any obvious immediate complications. Received moderate conscious sedation. Total sedation time was 20 minutes. Right radial artery access was obtained using Seldinger technique. A 6-[place]ralt[place] sheath was placed. Catheters and wires were floated into the ascending aorta under fluoroscopic guidance. The patient received verapamil and heparin per protocol. The patient received 5000 units of heparin. A TR band will be used for hemostasis. FINDINGS: 1. HEMODYNAMICS: Left ventricular end-diastolic pressure is 16 mmHg. There is no significant gradient across the aortic valve. 2. LEFT VENTRICULOGRAM: Left ventriculogram is not performed. 3. ANGIOGRAPHIC DATA: a.Left main coronary artery: Left main coronary artery is a normal-sized vessel, appears calcified, but is free of significant stenosis. Divides into left anterior descending coronary artery and circumflex coronary artery. b.LAD: The previously-stented segment appears fine. Just distal to the stent, there is a 40% to 50% stenosis. c.Circumflex coronary artery is a nondominant vessel, gives off fair-caliber OM branches. The first OM shows an ostial 70% stenosis. d.Right coronary artery is a large dominant vessel. There is an 80% to 90% distal RCA lesion just prior to the bifurcation into PDA and PLV. CONCLUSION: Three-vessel coronary artery disease as described above with a patent stent within the LAD and a focal 80% to 90% stenosis involving distal right coronary artery and ostial stenosis involving the OM branch. PLAN: I am going to review the angiographic data with Dr. Saldivar, who performed the previous angioplasty, and decide on whether to attempt intervention of the right coronary artery and do an iFR of the LAD or refer him to Surgery. MMODL / IJN: [id number] /
[2022-10-24] MEDS ORDERED: ACETAMINOPHEN TAB 325 MG TAB PO PRN (17:08)
[2022-10-24] MEDS ORDERED: HYDROcodone/APAP 5-325MG 1 EACH TAB PO PRN (17:08)
--- NOTE | 2022-10-24 17:43 | P.PN ---
Subjective Progress Note Date: 10/24/22 History of Presenting Illness: Patient is a very pleasant 61-year-old male with a past medical history of CAD status post stenting of LAD on 03/29/22 on dual antiplatelet therapy with aspirin and Effient, hypertension, hyperlipidemia, and hypothyroidism. Patient presented to the emergency department with a chief complaint of exertional chest pain and shortness of breath. Patient reports he is feeling similar to how he felt prior to having his initial stent placed at the beginning of this year. Patient states he first began to notice feeling more short of breath and tired/winded with normal walking or activity approximately one week ago and believes this has progressively worsened. Patient states he would feel increased tiredness, shortness of breath, and mild pain to his midsternal chest is walking down the drive to his mailbox. 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 Patient reports he has tried to stay active so this exertional shortness of breath and chest discomfort had him concerned. He denies having any other complaints including recent illnesses or exposure to known ill contacts, headache, lightheadedness, dizziness, palpitations, cough or congestion, nausea, vomiting, abdominal pain, or experiencing any numbness/tingling/weakness/swelling in his extremities. He underwent full evaluation in the emergency department. Vital signs reviewed. Temp 98.0F, heart rate 60, respiratory rate 18, blood pressure 134/83, and SpO2 of 98% on room air. Labs completed and reviewed. CBC and coagulation profile were unremarkable. D-dimer negative at 0.22. BMP showing slightly elevated chloride of 109 and low bicarb of 21. Glucose 112. Magnesium normal findings at 2.2. Liver profile normal findings with the exception of elevated ALT of 82. Initial troponin negative at less than 0.012 with proBNP less than 20. EKG completed showing normal sinus rhythm 60 bpm with no noted T-wave or ST abnormalities showing no signs of acute ischemia upon personal review and interpretation. Chest x-ray completed lungs appear clear showing no signs of acute cardiopulmona ry process and radiology report stating negative showing no evidence for acute pulmonary disease. Patient was admitted under our services to to cardiac unit with telemetry with consultation to cardiology. Troponins were trended and all negative at less than 0.0123 draws. Patient was evaluated by customer insight analyst and underwent cardiac catheterization. Cardiac cath revealing multivessel coronary artery disease with 50-60% mid LAD stenosis, 95% small caliber ostial diagonal 1 jailed stenosis, ostial OM 85-90% stenosis, and distal RCA stenosis. and patient was found to have 70% stenosis of right RCA and underwent successful PCI with stenting. Patient to continue cardiac medication regimen including dual antiplatelet therapy with Aspirin 81 mg daily and Effient 10 mg daily, atorvastatin 80 mg daily, isosorbide mononitrate 30 mg daily and metoprolol 25 mg daily Physical exam: Patient seen and fully evaluated at bedside shortly after returning from cardiac cath. Patient reports pain to right wrist cardiac cath access site. TR band in place no signs of bleeding or hematoma at this time. Patient denies having any numbness/tingling in his hand. RN to continue to slowly release air off of TR band and patient may be medicated for pain management as needed. Vital signs reviewed and stable. General: Nontoxic, no distress and appears stated age. Derm: Skin warm and dry, normal coloration for ethnicity. Head: Atraumatic, normocephalic and symmetric. Eyes: EOMs intact, no lid lag, and anicteric sclera Mouth: no lip lesions, mucus membranes moist Cardiovascular: regular rate and rhythm with normal S1S2, no murmur, positive posterior tibial pulses bilaterally, and cap refill < 2 seconds. Lungs: Respirations even, regular, and unlabored on room air. Lungs CTA bilaterally, no rhonchi, no rales, no wheezing, and no accessory muscle usage. Abdominal: soft, nontender to palpation, no guarding, no appreciable organomegaly Ext: ROM intact. No gross muscle atrophy, no edema, no contractures Neuro: Speech clear, face symmetrical and CN II-XII grossly intact with no noted focal neuro deficits Psych: Alert and oriented to person, place, time, and situation. Appropriate and pleasant affect. Assessment and Plan of Care: Unstable angina Exertional Chest pain and shortness of breath, rule out acute coronary event History of CAD status post stenting of LAD 03/29/22 Hypertension Hyperlipidemia -Cardiology consulted anticipation for cardiac cath. -Cardiac cath revealing multivessel coronary artery disease with 50-60% mid LAD stenosis, 95% small caliber ostial diagonal 1 jailed stenosis, ostial OM 85-90% stenosis, and distal RCA stenosis. and patient was found to have 70% stenosis of right RCA and underwent successful PCI with stenting. -Patient to continue cardiac medication regimen including dual antiplatelet therapy with Aspirin 81 mg daily and Effient 10 mg daily, atorvastatin 80 mg daily, isosorbide mononitrate 30 mg daily and metoprolol 25 mg daily -Continue Telemetry monitoring -Cardiac diet Hypothyroidism -Continue daily medication regimen with level thyroxine 100 g daily. Data review: Morning labs completed and reviewed. CBC unremarkable. CMP revealing slightly elevated AST of 45 and ALT of 82 otherwise normal findings. Lipid profile unremarkable with the exception of low HDL of 39.10. Troponins were trended overnight all negative at less than 0.0123 draws. Repeat morning EKG completed showing sinus bradycardia at 58 bpm with no noted T-wave or ST abnormalities showing no signs of acute ischemia upon personal review and interpretation. CODE STATUS: Full code DVT prophylaxis: Heparin Discussed with: Patient, RN, and cardiac STOCK SPECULATOR Anticipated discharge date: Clinical course to determine Anticipated discharge place: Home Patient was seen independently by Nurse Practitioner. This document was prepared using [employer] dictation software. Please allow for errors in lime sludge mixer while rare they do occur. Kang Garrett, STOCK SPECULATOR rendered care for this patient independently, reviewed the findings and plan as documented in the note above. I did not physically speak with or examine the patient on this date. Objective - Vital Signs Vital signs: Vital Signs Temp 97.8 F 10/24/22 02:40 Pulse 55 L 10/24/22 02:40 Resp 16 10/24/22 02:40 BP 133/72 10/24/22 02:40 Pulse Ox 96 10/24/22 02:40 FiO2 Intake & Output 10/23/22 10/24/22 10/24/22 18:59 06:59 18:59 Intake Total 171.976 Balance 171.976 Weight 95.254 kg Intake: Intake, IV Titration 171.976 Amount Heparin Sod,Pork in 0.45% 171.976 NaCl 25,000 unit In 0.45 % NaCl 1 250ml.bag @ 12 UNITS/KG/HR 11.43 mls/hr IV .[id number] [facility] Rx#: [id number] Other: # Voids 1 - Labs CBC & Chem 7: 10/24/22 07:50 10/25/22 05:42 Labs: Abnormal Lab Results - Last 24 Hours (Table) 10/23/22 10/23/22 10/24/22 Range/Units 08:57 18:17 00:21 APTT 32.1 H 69.6 H (22.0-30.0) sec Chloride 109 H (98-107) mmol/L Carbon Dioxide 21 L (22-30) mmol/L Glucose 112 H (74-99) mg/dL ALT 82 H (4-49) U/L 10/24/22 Range/Units 07:50 APTT 57.2 H (22.0-30.0) sec Chloride (98-107) mmol/L Carbon Dioxide (22-30) mmol/L Glucose (74-99) mg/dL ALT (4-49) U/L
[2022-10-24] MEDS: ATORVASTATIN 80 MG TAB PO SCH (20:43)
[2022-10-25] MEDS: LEVOTHYROXINE 100 MCG TAB PO SCH (06:20)
[2022-10-25 06:31] LABS: African American GFR (CKD) >90 (>60 ml/min/1.73 sqM); Anion Gap 7 mmol/L; Blood Urea Nitrogen 12 mg/dL (9-20); Calcium 8.9 mg/dL (8.4-10.2); Carbon Dioxide 23 mmol/L (22-30); Chloride 107 mmol/L (98-107); Glucose 107 mg/dL (74-99); Non-African American GFR(CKD) >90 (>60 ml/min/1.73 sqM); Potassium 4.1 mmol/L (3.5-5.1); Sodium 137 mmol/L (137-145)
[2022-10-25 07:26] VITALS: RESP 18
[2022-10-25 07:41] VITALS: TEMP 98
[2022-10-25 07:44] VITALS: BP 135/83; PULSE 59
[2022-10-25] MEDS: ISOSORBIDE MONONITRATE ER 30 MG TAB.ER.24H PO SCH (08:58)
[2022-10-25] MEDS: METOPROLOL SUCCINATE (ER) 25 MG TAB.ER.24H PO SCH (08:58)
[2022-10-25] MEDS: PRASUGREL 10 MG TAB PO SCH (08:58)
[2022-10-25] MEDS ORDERED: ASPIRIN 81 MG PO SCH (09:00)
[2022-10-25] MEDS ORDERED: LOSARTAN 25 MG TAB PO SCH (09:00)
--- NOTE | 2022-10-25 10:13 | P.PN ---
Subjective Progress Note Date: 10/25/22 History of present illness: This is a 61-year-old male with past history of hypertension, hyperlipidemia, hypothyroidism, coronary artery disease status post cardiac cath in March of this year following abnormal stress test which revealed proximal LAD significant stenosis of 95% with moderate disease in the distal RCA and circumflex. Patient had stenting proximal LAD with excellent results. The distal LAD was about 60% and obtuse marginal 70%. These were not further evaluated by FFR during the in itial procedure in March. Following that, he had a stress test that was normal. Patient presents to the hospital with 3 day history of increasing shortness of breath and chest tightness with moderate effort strongly suggestive of ischemia. Patient has been scheduled for cardiac catheterization today with Dr. Cobb and this has been scheduled 11:30 today. Patient is seen in follow-up on the observation unit. 10/25 Yesterday, patient underwent cardiac catheterization that revealed CAD with 50- 60% mid LAD stenosis, 95% small caliber ostial diagonal 1 "jailed" stenosis, ostial OM1 85-90% stenosis, distal RCA 70% stenosis. iFR normal mid LAD. FFR abnormal RCA Patient subsequently underwent PCI RCA Xience CORDELL, post balloon dilation. Patient is seen in follow-up. He denies having any chest pain. No shortness of breath. No lightheadedness or dizziness. Blood pressure 135/83, heart rate is in the 50s. Repeat blood work reveals BUN 12 creatinine 0.69, potassium 4.1. Physical examination: Gen: This is a 61-year-old male. He is resting bed appears to be comfortable and in no acute distress. VS: reviewed HEENT: Head is atraumatic, normocephalic. Pupils equal, round. Sclerae is anicteric. NECK: Supple. No JVD. . LUNGS: Clear to auscultation. No wheezes or rhonchi. No intercostal retractions. HEART: Regular rate and rhythm. No murmur. EXTREMITIES: No pedal edema. NEUROLOGICAL: Patient is awake, alert and oriented x3. Assessment: Unstable angina secondary to coronary artery disease status post stent and balloon dilation of the RCA Hypertension Hyperlipidemia Hypothyroidism History of coronary artery disease prior stenting of the proximal LAD by Dr. Saldivar in March 2022 Plan: Continue current cardiac medications Losartan added for improved blood pressure control Patient is cleared from cardiology for discharge home and may follow-up in the office with Dr. Olmos in one week Nurse practitioner note has been reviewed, I agree with documented findings and plan of care. Patient was seen and examined. Objective - Vital Signs Vital signs: Vital Signs Temp 98 F 10/25/22 07:23 Pulse 59 L 10/25/22 07:23 Resp 18 10/25/22 07:23 BP 135/83 10/25/22 07:23 Pulse Ox 97 10/25/22 07:23 FiO2 Intake & Output 10/24/22 10/25/22 10/25/22 18:59 06:59 18:59 Intake Total 918.024 Output Total 0 Balance 918.024 Intake: IV 600 Intake, IV Titration 78.024 Amount Heparin Sod,Pork in 0.45% 78.024 NaCl 25,000 unit In 0.45 % NaCl 1 250ml.bag @ 12 UNITS/KG/HR 11.43 mls/hr IV .[id number] Rx#: [id number] Oral 240 Output: Urine 0 Other: # Voids 1 1 - Labs CBC & Chem 7: 10/24/22 07:50 10/25/22 05:42 Labs: Abnormal Lab Results - Last 24 Hours (Table) 10/24/22 10/24/22 10/25/22 Range/Units 07:50 07:50 05:42 RBC 4.39 L (4.40-5.60) X 10*6/uL MCH 32.1 H (27.0-32.0) pg Glucose 107 H (74-99) mg/dL AST 45 H (14-35) U/L ALT 82 H (10-49) U/L Total Protein 6.1 L (6.2-8.2) d/dL HDL Cholesterol 39.10 L (40.00-60.00) mg/dL
[2022-10-25 11:10] VITALS: BMI 28.5
--- NOTE | 2022-10-25 11:28 | P.DS ---
Providers Date of admission: 10/23/22 13:36 Expected date of discharge: 10/25/22 Attending physician: Nirav Rooney MD Consults: 10/23/22 11:00 Consult Physician Urgent Consulting Provider: Win Belle Consult Reason/Comments: Chest pain Do you want consulting provider notified?: Yes 10/24/22 14:15 Consult Physician Routine Consulting Provider: Win Belle Consult Reason/Comments: Post Interventional patient Do you want consulting provider notified?: Already Contacted Primary care physician: [facility] Course: Discharge Diagnosis: Unstable angina. Patient underwent cardiac catheterization on 10/24/22 revealing multivessel coronary artery disease with 50-60% mid LAD stenosis, 95% small caliber ostial diagonal 1 jailed stenosis, ostial OM 85-90% stenosis, and distal RCA stenosis was found to have 70% stenosis. Cardiac cath resulted in successful PCI with stenting of right RCA. Patient to continue cardiac medication regimen including dual antiplatelet therapy with Aspirin 81 mg daily and Effient 10 mg daily, atorvastatin 80 mg daily, isosorbide mononitrate 30 mg daily and metoprolol 25 mg daily. In addition to this current cardiac medication regimen patient was also started on losartan 25 mg daily. Patient to follow up outpatient with PCP in 1-2 days and with sap architect next week. Multivessel coronary artery disease status post stenting 2 (LAD 03/29/22 and RCA 10/24/22) Exertional Chest pain and shortness of breath, secondary to unstable angina Hypertension Hyperlipidemia Hypothyroidism. Continue daily medication regimen with level thyroxine 100 g daily. Hospital Course: Patient is a very pleasant 61-year-old male with a past medical history of CAD status post stenting of LAD on 03/29/22 on dual antiplatelet therapy with aspirin and Effient, hypertension, hyperlipidemia, and hypothyroidism. Patient presen arlet to the emergency department on 10/23/22 with a chief complaint of exertional chest pain and shortness of breath progressively worsening over the past week which he reported was similar to how he felt prior to having his initial stent placed at the beginning of this year. He underwent full evaluation in the emergency department. Vital signs stable upon arrival. Labs completed and reviewed. CBC and coagulation profile were unremarkable. D-dimer negative at 0.22. BMP showing slightly elevated chloride of 109 and low bicarb of 21. Glucose 112. Magnesium normal findings at 2.2. Liver profile normal findings with the exception of elevated ALT of 82. Initial troponin negative at less than 0.012 with proBNP less than 20. EKG completed showing normal sinus rhythm 60 bpm with no noted T-wave or ST abnormalities showing no signs of acute ischemia upon personal review and interpretation. Chest x-ray completed lungs appear clear showing no signs of acute cardiopulmonary process and radiology report stating negative showing no evidence for acute pulmonary disease. Patient was admitted under our services to to cardiac unit with telemetry with consultation to cardiology. Troponins were trended overnight and all negative at less than 0.0123 draws. Patient was evaluated by sap architect and underwent cardiac catheterization on 10/24/22. Cardiac cath revealied multivessel coronary artery disease with 50-60% mid LAD stenosis, 95% small caliber ostial diagonal 1 "jailed" stenosis, ostial OM 85-90% stenosis, and distal RCA stenosis was found to have 70% stenosis. Cardiac catheterization resulted in successful PCI with stenting of right RCA. Cardiology recommending patient be started on losartan 25 mg daily and follow-up outpatient in their office next week. Medically, patient stable at this time and free from any complaints or concerns. Cardiac cath access site right wrist showing no signs of bruising, bleeding, or hematoma. Vital signs unremarkable. In addition to newly added losartan 25 mg daily, Patient to also continue cardiac medication regimen including dual antiplatelet therapy with Aspirin 81 mg daily and Effient 10 mg daily, atorvastatin 80 mg daily, isosorbide mononitrate 30 mg daily and metoprolol 25 mg daily. Patient to follow up outpatient with PCP in 1-2 days and cardiology as scheduled next week. Discharge instructions explained in detail at bedside to patient's and patient. Physical exam: Vital signs reviewed and stable. General: Nontoxic, no distress and appears stated age. Derm: Skin warm and dry, normal coloration for ethnicity. Head: Atraumatic, normocephalic and symmetric. Eyes: EOMs intact, no lid lag, and anicteric sclera Mouth: no lip lesions, mucus membranes moist Cardiovascular: regular rate and rhythm with normal S1S2, no murmur, positive posterior tibial pulses bilaterally, and cap refill < 2 seconds. Lungs: Respirations even, regular, and unlabored on room air. Lungs CTA bilaterally, no rhonchi, no rales, no wheezing, and no accessory muscle usage. Abdominal: soft, nontender to palpation, no guarding, no appreciable organomegaly Ext: ROM intact. No gross muscle atrophy, no edema, no contractures Neuro: Speech clear, face symmetrical and CN II-XII grossly intact with no noted focal neuro deficits Psych: Alert and oriented to person, place, time, and situation. Appropriate and pleasant affect. A total of 38 minutes of time were spent preparing this complex discharge summary. Pt was discharged on 10/25/22 at 11:27 AM Patient was seen independently by Nurse Practitioner. This document was prepared using [employer] dictation software. Please allow for errors in senior software manager while rare they do occur. Kang Garrett NP rendered care for this patient independently, reviewed the findings and plan as documented in the note above. I did not physically speak with or examine the patient on this date. Patient Condition at Discharge: Stable Plan - Discharge Summary New Discharge Prescriptions: New Losartan [Cozaar] 25 mg PO DAILY #90 tab Continue Aspirin 81 mg PO DAILY Nitroglycerin Sl Tabs [Nitrostat] 0.4 mg SUBLINGUAL Q5M PRN #100 tab PRN Reason: Chest Pain Metoprolol Succinate (ER) [Toprol XL] 25 mg PO DAILY Levothyroxine Sodium [Synthroid] 100 mcg PO DAILY Prasugrel [Effient] 10 mg PO DAILY #90 tablet Atorvastatin Calcium [Lipitor] 80 mg PO HS #90 tablet Isosorbide Mononitrate ER [Imdur] 30 mg PO DAILY Discharge Medication List Aspirin 81 mg PO DAILY 03/28/22 [History] Levothyroxine Sodium [Synthroid] 100 mcg PO DAILY 03/28/22 [History] Atorvastatin Calcium [Lipitor] 80 mg PO HS #90 tablet 03/30/22 [Rx] Nitroglycerin Sl Tabs [Nitrostat] 0.4 mg SUBLINGUAL Q5M PRN #100 tab 03/30/22 [Rx] Prasugrel [Effient] 10 mg PO DAILY #90 tablet 03/30/22 [Rx] Isosorbide Mononitrate ER [Imdur] 30 mg PO DAILY 10/23/22 [History] Metoprolol Succinate (ER) [Toprol XL] 25 mg PO DAILY 10/23/22 [History] Losartan [Cozaar] 25 mg PO DAILY #90 tab 10/25/22 [Rx] Follow up Appointment(s)/Referral(s): Oscar Bates MD [Primary Care Provider] - 1-2 days Nish Olmos MD [STAFF PHYSICIAN] - 11/01/22 8:00 am Patient Instructions/Handouts: *Surgery [facility] - After Heart Catheterization - Vessel Crew Member Instructions, Cardiac Rehabilitation (GEN), Heart Catheterization (DC) Activity/Diet/Wound Care/Special Instructions: Just some important facts for you to understand about your discharge and medicatios....... Aspirin as anti-platelet therapy - Aspirin lessens the chance of heart attack and stroke. It helps prevent blood clots from forming, allowing the blood to flow more easily. Each day, you will take one 81 mg (non-enteric coated) tablet daily. Do not stop unless instructed by your doctor. Anti-platelet Therapy. -In addition to aspirin, you will take one additional anti-platelet medication daily. This will help prevent a clot from forming in your stent: Prasugrel (Effient) -You will need to take your anti-platelet medicine every day for 12 months -Please consult your heart doctor before you stop this medicine. -They may want you to continue for a longer period of time. Statins -A statin medication lowers cholesterol levels in the blood. This helps slow the progression of heart disease. - Please take your statin medication as prescribed by your doctor. -You may be taking one of the following statins: Atorvastatin Beta blockers Your Medication: Metoprolol Is a medication that protects your heart from stress and can prevent future heart attacks. It can slow your heart rate. It can take weeks for your body to get used to a beta eliza. The dose may need to be changed a few times as your body adjusts Angiotensin receptor eliza (ARB) Your medication: Losartan is an angiotensin receptor eliza in the ER used to reduce cardiovascular events and decrease the risk of developing diabetes, these medications are also known to prevent left ventricular remodeling after you have suffered a myocardial infarction. Do not stop taking these medicines without talking to your doctor. -Take all other medicines as directed by your doctor. Do not take any extra aspirin or ibuprofen. They can increase your risk of bleeding. Many [id number] drugs contain aspirin. If you are unsure about what the drug contains, check with your pharmacist before taking it. -For mild discomfort, you may take plain Tylenol (acetaminophen). Follow dose directions, but do not take more than 4,000 mg of acetaminophen in 24 hours. Contact your doctor right away or go to the nearest hospital Emergency Room if you have: -Severe angina or chest pain. (This may be a sign of a problem with your stent.) -Excessive bruising, blood in urine/stool or black tarry stools. Healthy LifeStyle It is important to keep a heart healthy lifestyle. This can improve your long- term health and decrease your risk for heart attacks. -Managing your blood cholesterol, blood pressure, weight, and stress. -The importance of regular exercise. -Heart Healthy Diet: Include more plants in your diet. Eat lots of fresh vegetables and fresh fruits. Eat good fats: plant based oils, avocado, nuts, beans, legumes. Eat more seafood. Limit Meat. Switch to whole grains. -Avoid fried foods and animal fats and processed meats Follow up with your PCP and [facility] Thank you for allowing us to participate in your care, it was truly a pleasure having you for our patient!!! Discharge Disposition: HOME SELF-CARE
== END 2022-10-25 13:42 | disposition home or self-care (01) | DRG 247 ==
LOC: EC 08:09 → 6NMEDSUR 11:00 → OBSVTOIN 13:36 → 6NMEDSUR 14:12
PROVIDERS: ADMIT Student in an Organized Health Care Education/Training Program; ATTEND Student in an Organized Health Care Education/Training Program
PROC: 0270346 Dilation of Coronary Artery, One Artery, Bifurcation, with Drug-eluting Intraluminal Device, Percutaneous Approach (ICD-10-PCS; principal; 2022-10-24 09:00)
PROC: 4A033BC Measurement of Arterial Pressure, Coronary, Percutaneous Approach (ICD-10-PCS; principal; 2022-10-24 09:00)
PROC: 4A023N7 Measurement of Cardiac Sampling and Pressure, Left Heart, Percutaneous Approach (ICD-10-PCS; 2022-10-24 09:00)
PROC: B2111ZZ Fluoroscopy of Multiple Coronary Arteries using Low Osmolar Contrast (ICD-10-PCS; 2022-10-24 09:00)
DX: T82.897A Other specified complication of cardiac prosthetic devices, implants and grafts, initial encounter (principal); I25.110 Atherosclerotic heart disease of native coronary artery with unstable angina pectoris; I25.84 Coronary atherosclerosis due to calcified coronary lesion; E03.9 Hypothyroidism, unspecified; E78.00 Pure hypercholesterolemia, unspecified; I10 Essential (primary) hypertension; R74.01 Elevation of levels of liver transaminase levels; Z79.82 Long term (current) use of aspirin; Z79.890 Hormone replacement therapy; Z79.02 Long term (current) use of antithrombotics/antiplatelets; Z79.899 Other long term (current) drug therapy; Z87.891 Personal history of nicotine dependence; Z95.5 Presence of coronary angioplasty implant and graft; Y84.0 Cardiac catheterization as the cause of abnormal reaction of the patient, or of later complication, without mention of misadventure at the time of the procedure
CPT/HCPCS: 36415; 71046; 80048; 80053; 80061; 83735; 83880; 84484; 85025; 85379; 85610; 85730; 93005; 93458; 93571; 93799; 96365; 96366; 96375; 99285

== ENCOUNTER → 2022-12-05 | Outpatient (CLI) | payer OTHER ==
[2022-12-05 11:24] LABS: HCT 41.6 % (39.6-50.0); HGB 14.2 d/dL (13.0-17.0); MCH 31.1 pg (27.0-32.0); MCHC 34.1 d/dL (32.0-37.0); Mean Platelet Volume 9.9 FL (9.5-12.2); NRBC Per 100 WBC 0 X 10*3/uL (0.00-0.01); Platelet Count 264 X 10*3/uL (140-440); RBC 4.57 X 10*6/uL (4.40-5.60); RDW 12.6 % (11.5-14.5); WBC 4.36 X 10*3/uL (4.50-10.00)
[2022-12-05 11:41] LABS: ALT 56 U/L (10-49); AST 31 U/L (14-35); Albumin 4.5 d/dL (3.8-4.9); Albumin/Globulin Ratio 2.37 Ratio (1.60-3.17); Alkaline Phosphatase 80 U/L (41-126); BUN/Creat Ratio 18.12 Ratio (12.00-20.00); Blood Urea Nitrogen 14.5 mg/dL (9.0-27.0); Calcium 9.4 mg/dL (8.7-10.3); Carbon Dioxide 24.3 mmol/L (21.6-31.8); Chloride 104 mmol/L (96-109); Chol/HDL Ratio 2.85 Ratio; Globulin 1.9 d/dL (1.6-3.3); Glucose 118 mg/dL (70-110); Potassium 4.1 mmol/L (3.5-5.5); Prostate Specific Antigen 1.36 ng/mL (0.000-4.500); Sodium 139 mmol/L (135-145); T4, Free (Free Thyroxine) 1.48 ng/dL (0.80-1.80); Total Bilirubin 0.9 mg/dL (0.3-1.2); Total Protein 6.4 d/dL (6.2-8.2)
== END | disposition home or self-care (01) ==
LOC: LABWHC1 08:07
PROVIDERS: ATTEND Family Medicine
DX: Z00.01 Encounter for general adult medical examination with abnormal findings (principal); E03.9 Hypothyroidism, unspecified
CPT/HCPCS: 36415; 80053; 80061; 84153; 84439; 84443; 84481; 85027

== ENCOUNTER → 2023-01-31 | Outpatient (CLI) | payer OTHER ==
--- NOTE | 2023-01-31 11:42 | P.PAINPG ---
PQRS Measure Charge Sheet Comment: HISTORY OF PRESENT ILLNESS: A 62 yr old male as a referral from [facility] presents today w severe and chronic LBP secondary to DDD, spondylosis and facet arthropathy without myelopathy for evaluation. Pt states pain level is provoked at 8 /10 in intensity, constant, localized in the lower lumbar spine, predominantly axial, sharp in character w occasional shooting pain towards the RLE. Pain is provoked by standing from a sitting position. Pain is alleviated by PT x wks which he is currently in, chiropractic treatments semi weekly x wks which he is currently in, heat, ice, topical THC, reclining and rest. Oswestry axial pain score at 24. PMH: OA, Hypothyroid Disorder PSH: Appendectomy, Heart Catheterization With Stent (2022) SH: Former tobacco user, Occasional ETOH use, Cannabis use FH: Mo- Alcoholism/ . All: See list Meds: See list REVIEW OF ORGAN SYSTEMS: CONSTITUTIONAL: No fevers or chills. No recent weight loss. NEUROLOGICAL: + numbness and tingling along the distal extremities. No seizure disorders or headaches. MUSCULOSKELETAL: + pain PSYCHIATRIC: Denies current depression or suicidal thoughts. Physical Examinations : Constitutional : Cooperative , not in acute distress . Neurologic : Cranial nerve II to XII intact. No focal neurological deficits. Psychiatric : alert & oriented x 3. Matching mood & appropriate affect. Judgment & insight intact. Musculoskeletal : Cervical Spine Motor strength in the deltoid and biceps: Normal right side. Normal Left side Motor strength biceps and the wrist extensors: Normal right side . Normal left side Motor strength in the triceps muscle: Normal right side. Normal left side Deep tendon reflexes: Normal at the biceps. Normal at Brachioradialis. Normal at triceps Vertebral body tenderness to deep palpation over Cervical facet loading test: positive bilaterally Spurling test: positive bilaterally Neck distraction test: positive bilaterally Elier sign: positive bilaterally Lumbar spine Motor strength lower extremities ,thigh and legs 5/5 Right side , 5/5 Left side Deep tendon reflexes : Normal Knee Jerk. Normal Ankle Jerk Vertebral body tenderness over L3 Lima Test positive over R L3-L4 Lumbar facet Loading Test: positive Right / positive Left Range of motion of the lumbar spine Flexion 30 degrees, extension 10 degrees Straight Leg Raise test: Left/ Right positive at degree Mikala test: positive right / positive left. Severe tenderness over the Sacroiliac joint on the Right / Left sides Gaenslen test: positive bilaterally Seated flexion test: positive bilaterally. Sacral spine : Severe tenderness over the Sacroiliac joint: right side / left side Range of motion: Flexion of the lumbar spine <60 degrees Range of motion: Extension of the lumbar spine <20 degrees Gaenslen's Test positive Mikala test: positive right side / left side Thigh Thrust Test Sacral Thrust Test Imaging: MRI noncontrast of the lumbar spine from 10/28/22 reviewed Assessment/ Plan : Lumbar DDD Recommendation of CORINNA R paramedian L3-L4 #1. May need a series of injections for optimal pain relief. Risks, benefits of procedure discussed and patient verbalized understanding. Admits to anti- coagulant use or medical history of diabetes. Protocol for discontinuation/ continuation of medications dawna procedure discussed. Minimal anesthesia provided, if clinically indicated, consisting of Versed and Fentanyl. All questions answered. I have spent greater than 30 minutes on patient care today. Dr Vogel was available by phone for the evaluation of this patient. The time was used to review the medical records including relevant urine studies and Prescription history (MAPs), review of the available imaging, evaluation and examination of the patient, coordination of care with the medical staff and if applicable referring physicians, as well as creation of the medical record Home Medications: Ambulatory Orders Aspirin 81 mg PO DAILY 03/28/22 Levothyroxine Sodium [Synthroid] 100 mcg PO DAILY 03/28/22 Atorvastatin Calcium [Lipitor] 80 mg PO HS #90 tablet 03/30/22 Nitroglycerin Sl Tabs [Nitrostat] 0.4 mg SUBLINGUAL Q5M PRN #100 tab 03/30/22 Prasugrel [Effient] 10 mg PO DAILY #90 tablet 03/30/22 Isosorbide Mononitrate ER [Imdur] 30 mg PO DAILY 10/23/22 Metoprolol Succinate (ER) [Toprol XL] 25 mg PO DAILY 10/23/22 Losartan [Cozaar] 25 mg PO DAILY #90 tab 10/25/22 Controlled Substance Measures - Controlled Substance Measures Is patient prescribed a controlled substance at discharge?: No
[2023-01-31 12:39] VITALS: BP 144/85; PULSE 94; RESP 15; TEMP 98.5
== END ==
LOC: PNWHC3 10:56
PROVIDERS: ATTEND Specialist
DX: M51.16 Intervertebral disc disorders with radiculopathy, lumbar region (principal); M47.26 Other spondylosis with radiculopathy, lumbar region; M19.90 Unspecified osteoarthritis, unspecified site; E03.9 Hypothyroidism, unspecified; Z79.82 Long term (current) use of aspirin; Z79.890 Hormone replacement therapy; Z87.891 Personal history of nicotine dependence
CPT/HCPCS: 99211

== ENCOUNTER 2023-06-25 11:37 | Emergency (ER) | payer OTHER ==
[2023-06-25 11:50] VITALS: RESP 18; TEMP 98.3
--- NOTE | 2023-06-25 12:25 | ED ---
General Adult HPI - General Chief complaint: Chest Pain Stated complaint: Chest pain, syncope Time Seen by Provider: 06/25/23 11:56 Source: patient Mode of arrival: wheelchair Limitations: no limitations - History of Present Illness Initial comments: Dictation was produced using [employer] dictation software. please excuse any grammatical, word or spelling errors. Chief Complaint: 62-year-old male presents with presyncope History of Present Illness: Patient 62-year-old male he woke up feeling at his baseline. However throughout the morning he started to feel as if the room was spinning. States that his symptoms are triggered whenever he tries to stand or bend forward. States that he had 3 episodes today were he started to feel dizzy. Denies any shortness of breath. States that he did feel some chest pressure. Does have history of coronary artery stents. The ROS documented in this emergency department record has been reviewed and confirmed by me. Those systems with pertinent positive or negative responses have been documented in the HPI. All other systems are other negative and/or noncontributory. - Related Data Home Medications Medication Instructions Recorded Confirmed Aspirin 81 mg PO DAILY 03/28/22 10/23/22 Levothyroxine Sodium [Synthroid] 100 mcg PO DAILY 03/28/22 10/23/22 Isosorbide Mononitrate ER [Imdur] 30 mg PO DAILY 10/23/22 10/23/22 Metoprolol Succinate (ER) [Toprol 25 mg PO DAILY 10/23/22 10/23/22 XL] Previous Rx's Medication Instructions Recorded Atorvastatin Calcium [Lipitor] 80 mg PO HS #90 tablet 03/30/22 Nitroglycerin Sl Tabs [Nitrostat] 0.4 mg SUBLINGUAL Q5M PRN #100 tab 03/30/22 Prasugrel [Effient] 10 mg PO DAILY #90 tablet 03/30/22 Losartan [Cozaar] 25 mg PO DAILY #90 tab 10/25/22 Meclizine [Antivert] 25 mg PO TID PRN #15 tab 06/25/23 Allergies Allergy/AdvReac Type Severity Reaction Status Date / Time No Known Allergies Allergy Verified 06/25/23 11:42 Review of Systems ROS Statement: Those systems with pertinent positive or pertinent negative responses have been documented in the HPI. ROS Other: All systems not noted in ROS Statement are negative. Past Medical History Past Medical History: No Reported History, Thyroid Disorder History of Any Multi-Drug Resistant Organisms: None Reported Past Surgical History: Appendectomy, Heart Catheterization With Stent Additional Past Surgical History / Comment(s): stent april 2022. Past Anesthesia/Blood Transfusion Reactions: No Reported Reaction Date of Last Stent Placement:: apr 2022 Past Psychological History: No Psychological Hx Reported Smoking Status: Former smoker Past Alcohol Use History: Occasional Past Drug Use History: Marijuana - Past Family History Mother Additional Family Medical History / Comment(s): due to alcoholism General Exam - General Exam Comments Initial Comments: PHYSICAL EXAM: General Impression: Alert and oriented x3, not in acute distress HEENT: Normocephalic atraumatic, extra-ocular movements intact, pupils equal and reactive to light bilaterally, mucous membranes moist. Cardiovascular: Heart regular rate and rhythm Chest: Able to complete full sentences, no retractions, no tachypnea Abdomen: abdomen soft, non-tender, non-distended, no organomegaly Musculoskeletal: Pulses present and equal in all extremities, no peripheral edema Motor: no focal deficits noted Neurological: CN II-XII grossly intact, no focal motor or sensory deficits noted Skin: Intact with no visualized rashes Psych: Normal affect and mood Limitations: no limitations Course Vital Signs 06/25/23 06/25/23 11:38 13:37 Temperature 98.3 F Pulse Rate 107 H Respiratory 18 Rate Blood Pressure 133/83 Blood Pressure 122/88 [Sitting] Blood Pressure 119/86 [Standing] Blood Pressure 123/89 [Supine] O2 Sat by Pulse 97 Oximetry EKG Findings - EKG Comments: EKG Findings:: My EKG interpretation: Ventricular rate 93, sinus rhythm,. 186, cures 93, QTc 381. No AR prolongation, no QTC prolongation, no ST or T-wave changes noted. Overall, this EKG is unremarkable Medical Decision Making - Medical Decision Making Was pt. sent in by a medical professional or institution (, PA, SPEECH AND HEARING CLINIC DIRECTOR, urgent care, hospital, or residential...) When possible be specific @ -No Did you speak to anyone other than the patient for history (EMS, parent, family, police, friend...)? What history was obtained from this source @ -No Did you review nursing and triage notes (agree or disagree)? Why? @ -I reviewed and agree with nursing and triage notes Were old charts reviewed (outside hosp., previous admission, EMS record, old EKG, old radiological studies, urgent care reports/EKG's, residential records)? Report findings @ -No old charts were reviewed Differential Diagnosis (chest pain, altered mental status, abdominal pain women, abdominal pain men, vaginal bleeding, musculoskeletal, weakness, fever, dyspnea, syncope, headache, dizziness, GI bleed, back pain, seizure, CVA, palpatations, mental health)? @ -Differential Dizziness: Benign paroxysmal positional Vertigo, Menieres disease, otitis media, acoustic neuroma, vertebrobasilar insufficiency, cerebellar stroke, encephalitis, hypovolemic, arrhythmia, coronary artery syndrome, anemia, this is not meant to be an all-inclusive list EKG interpreted by me (3pts min.). @ -See above X-rays interpreted by me (1pt min.). @ -None done CT interpreted by me (1pt min.). @ -None done U/S interpreted by me (1pt. min.). @ -None done What testing was considered but not performed or refused? (CT, X-rays, U/S, labs)? Why? @ -None What meds were considered but not given or refused? Why? @ -None Did you discuss the management of the patient with other professionals (professionals i.e. , PA, SPEECH AND HEARING CLINIC DIRECTOR, lab, RT, psych nurse, protective services social worker, certified orthotist practice manager, teacher, radio officer, insurance case manager)? Give summary @ -No Was smoking cessation discussed for >3mins.? @ -No Was critical care preformed (if so, how long)? @ -No Were there social determinants of health that impacted care today? How? (Homelessness, low income, unemployed, alcoholism, drug addiction, transportation, low edu. Level, literacy, decrease access to med. care, fpc, rehab)? @ -No Was there de-escalation of care discussed even if they declined (Discuss DNR or withdrawal of care, Hospice)? DNR status @ -No What co-morbidities impacted this encounter? (DM, HTN, Smoking, COPD, CAD, Cancer, CVA, ARF, Chemo, Hep., AIDS, mental health diagnosis, sleep apnea, morbid obesity)? @ -None Was patient admitted / discharged? Hospital course, mention meds given and route, prescriptions, significant lab abnormalities, going to OR and other pertinent info. @ -62-year-old male presents emergency department with what sounds like positional dizziness. He does report some vertigo. Vital signs upon arrival are within acceptable limits. Orthostatic vital signs are normal. Laboratory e valuation is unremarkable. Troponin is negative. Patient given Antivert with resolution of symptoms. Patient ambulated at the bedside states to feel at baseline. Patient discharged advised follow-up with primary care doctor. Prescription provided for Antivert. Undiagnosed new problem with uncertain prognosis? @ -No Drug Therapy requiring intensive monitoring for toxicity (Heparin, Nitro, Ins ulin, Cardizem)? @ -No Were any procedures done? @ -No Diagnosis/symptom? Acute, or Chronic, or Acute on Chronic? Uncomplicated (without systemic symptoms) or Complicated (systemic symptoms)? @ -Positional vertigo Side effects of treatment? @ -No Exacerbation, Progression, or Severe Exacerbation? @ -No Poses a threat to life or bodily function? How? (Chest pain, USA, ND, pneumonia, PE, COPD, DKA, ARF, appy, cholecystitis, CVA, Diverticulitis, Homicidal, Suicidal, threat to staff... and all critical care pts) @ -No - Lab Data Result diagrams: 06/25/23 12:30 06/25/23 12:30 Lab Results 06/25/23 06/25/23 06/25/23 Range/Units 12:30 12:30 12:30 WBC 6.1 (3.8-10.6) k/uL RBC 4.87 (4.30-5.90) m/uL Hgb 15.5 (13.0-17.5) gm/dL Hct 45.6 (39.0-53.0) % MCV 93.7 (80.0-100.0) fL MCH 31.8 (25.0-35.0) pg MCHC 34.0 (31.0-37.0) g/dL RDW 13.0 (11.5-15.5) % Plt Count 314 (150-450) k/uL MPV 7.4 Neutrophils % 64 % Lymphocytes % 24 % Monocytes % 8 % Eosinophils % 2 % Basophils % 1 % Neutrophils # 3.9 (1.3-7.7) k/uL Lymphocytes # 1.5 (1.0-4.8) k/uL Monocytes # 0.5 (0-1.0) k/uL Eosinophils # 0.1 (0-0.7) k/uL Basophils # 0.1 (0-0.2) k/uL PT 10.8 (10.0-12.5) sec INR 1.0 (<1.2) APTT 24.0 (22.0-30.0) sec Sodium 140 (137-145) mmol/L Potassium 4.0 (3.5-5.1) mmol/L Chloride 109 H (98-107) mmol/L Carbon Dioxide 21 L (22-30) mmol/L Anion Gap 10 mmol/L BUN 16 (9-20) mg/dL Creatinine 0.75 (0.66-1.25) mg/dL Est GFR (CKD-EPI)AfAm >90 (>60 ml/min/1.73 sqM) Est GFR (CKD-EPI)NonAf >90 (>60 ml/min/1.73 sqM) Glucose 140 H (74-99) mg/dL Calcium 10.0 (8.4-10.2) mg/dL Magnesium 2.1 (1.6-2.3) mg/dL Total Bilirubin 0.9 (0.2-1.3) mg/dL AST 47 (17-59) U/L ALT 78 H (4-49) U/L Alkaline Phosphatase 67 (38-126) U/L Troponin I (0.000-0.034) ng/mL Total Protein 7.1 (6.3-8.2) g/dL Albumin 4.4 (3.5-5.0) g/dL 06/25/23 Range/Units 12:30 WBC (3.8-10.6) k/uL RBC (4.30-5.90) m/uL Hgb (13.0-17.5) gm/dL Hct (39.0-53.0) % MCV (80.0-100.0) fL MCH (25.0-35.0) pg MCHC (31.0-37.0) g/dL RDW (11.5-15.5) % Plt Count (150-450) k/uL MPV Neutrophils % % Lymphocytes % % Monocytes % % Eosinophils % % Basophils % % Neutrophils # (1.3-7.7) k/uL Lymphocytes # (1.0-4.8) k/uL Monocytes # (0-1.0) k/uL Eosinophils # (0-0.7) k/uL Basophils # (0-0.2) k/uL PT (10.0-12.5) sec INR (<1.2) APTT (22.0-30.0) sec Sodium (137-145) mmol/L Potassium (3.5-5.1) mmol/L Chloride (98-107) mmol/L Carbon Dioxide (22-30) mmol/L Anion Gap mmol/L BUN (9-20) mg/dL Creatinine (0.66-1.25) mg/dL Est GFR (CKD-EPI)AfAm (>60 ml/min/1.73 sqM) Est GFR (CKD-EPI)NonAf (>60 ml/min/1.73 sqM) Glucose (74-99) mg/dL Calcium (8.4-10.2) mg/dL Magnesium (1.6-2.3) mg/dL Total Bilirubin (0.2-1.3) mg/dL AST (17-59) U/L ALT (4-49) U/L Alkaline Phosphatase (38-126) U/L Troponin I <0.012 (0.000-0.034) ng/mL Total Protein (6.3-8.2) g/dL Albumin (3.5-5.0) g/dL Disposition Clinical Impression: BPPV (benign paroxysmal positional vertigo) Disposition: HOME SELF-CARE Condition: Good Instructions (If sedation given, give patient instructions): Vertigo (ED) Prescriptions: Meclizine [Antivert] 25 mg PO TID PRN #15 tab PRN Reason: dizziness Is patient prescribed a controlled substance at d/c from ED?: No Referrals: Oscar Bates MD [STAFF PHYSICIAN] - 1-2 days Time of Disposition: 14:23
[2023-06-25 12:46] LABS: Basophils # (A) 0.1 k/uL (0-0.2); Basophils % (A) 1 %; Eosinophils # (A) 0.1 k/uL (0-0.7); Eosinophils % (A) 2 %; HCT 45.6 % (39.0-53.0); HGB 15.5 gm/dL (13.0-17.5); Lymphocytes # (A) 1.5 k/uL (1.0-4.8); Lymphocytes % (A) 24 %; MCH 31.8 pg (25.0-35.0); MCV 93.7 fL (80.0-100.0); Mean Platelet Volume 7.4; Monocytes # (A) 0.5 k/uL (0-1.0); Monocytes % (A) 8 %; Neutrophils # (A) 3.9 k/uL (1.3-7.7); Neutrophils % (A) 64 %; Platelet Count 314 k/uL (150-450); RBC 4.87 m/uL (4.30-5.90); WBC 6.1 k/uL (3.8-10.6)
--- NOTE | 2023-06-25 12:46 | XR ---
EXAMINATION TYPE: XR chest 2V DATE OF EXAM: 06/25/2023 COMPARISON: 10/23/2022 TECHNIQUE: PA and lateral views submitted. HISTORY: Chest pain FINDINGS: The lungs are clear and there is no pneumothorax, pleural effusion, or focal pneumonia. Borderline c ardiomegaly but no overt failure. Osseous structures demonstrate hypertrophic and degenerative change s of the spine. Diffuse osteopenia. Elevated right hemidiaphragm. Vague density left upper lobe measu ring 5 mm. Could represent a small nodule, superimposed structures or be related to adjacent chest le ad. IMPRESSION: 1. No acute infiltrate or overt failure. 2. Small 5 mm left upper lobe nodule too small to characterize. See above.
[2023-06-25 12:54] LABS: ALT 78 U/L (4-49); AST 47 U/L (17-59); African American GFR (CKD) >90 (>60 ml/min/1.73 sqM); Albumin 4.4 g/dL (3.5-5.0); Alkaline Phosphatase 67 U/L (38-126); Anion Gap 10 mmol/L; Blood Urea Nitrogen 16 mg/dL (9-20); Carbon Dioxide 21 mmol/L (22-30); Chloride 109 mmol/L (98-107); Glucose 140 mg/dL (74-99); Magnesium 2.1 mg/dL (1.6-2.3); Non-African American GFR(CKD) >90 (>60 ml/min/1.73 sqM); Sodium 140 mmol/L (137-145); Total Bilirubin 0.9 mg/dL (0.2-1.3); Total Protein 7.1 g/dL (6.3-8.2)
[2023-06-25 12:59] LABS: Prothrombin Time 10.8 sec (10.0-12.5)
[2023-06-25] MEDS: MECLIZINE 12.5 MG TAB PO STA (13:41)
[2023-06-25 14:33] VITALS: BP 118/86; PULSE 82
== END 2023-06-25 14:36 | disposition home or self-care (01) ==
LOC: EC 11:37
DX: H81.10 Benign paroxysmal vertigo, unspecified ear (principal); Z87.891 Personal history of nicotine dependence; Z95.5 Presence of coronary angioplasty implant and graft
CPT/HCPCS: 36415; 71046; 80053; 83735; 84484; 85025; 85610; 85730; 93005; 99285

== ENCOUNTER → 2023-09-26 | Outpatient (CLI) | payer OTHER ==
--- NOTE | 2023-09-26 22:30 | US ---
EXAMINATION TYPE: US thyroid st tissue head/neck DATE OF EXAM: 09/26/2023 COMPARISON: 04/12/22 CLINICAL INDICATION: Male, 62 years old with history of E03.9 HYPOTHYROIDISM; hypothyroidism GLAND SIZE: Right Lobe: 3.8 x 2.0 x 1.3 cm Overall Parenchyma: homogeneous Left Lobe: 3.6 x 1.4 x 1.1 cm Overall Parenchyma: homogeneous Isthmus Thickness: 0.4 cm NODULES RIGHT: # of nodules measured on right: 1 1. 0.6 X 0.6 x 0.6 cm, mid mid, solid or almost completely solid, hypoechoic nodule, which is wider than tall, with ill-defined margins, without echogenic foci. Prior size: 0.7 x 0.7 x 0.8 cm posterior shadowing noted LEFT: # of nodules measured on left: 1 1. 0.5 X 0.5 x 0.4 cm, upper mid, solid or almost completely solid, hypoechoic nodule, which is wid er than tall, with smooth margins, without echogenic foci. Prior size: 0.7 x 0.5 x 0.7 cm ISTHMUS: # of nodules measured in the isthmus: 0 Bilateral neck scanned, no evidence of lymphadenopathy. IMPRESSION: Subcentimeter thyroid nodules.
== END | disposition home or self-care (01) ==
LOC: RADUSWWP 12:31
PROVIDERS: ATTEND Family Medicine
DX: E04.2 Nontoxic multinodular goiter (principal); E03.9 Hypothyroidism, unspecified
CPT/HCPCS: 76536

== ENCOUNTER 2023-10-07 10:00 | Day surgery (SDC) | payer OTHER ==
[2023-10-02 15:45] VITALS: BMI 30.1
[2023-10-07 10:50] VITALS: TEMP 97.2
[2023-10-07] MEDS: LACTATED RINGERS 1,000 ML IV SCH (10:50)
[2023-10-07] MEDS: IV FLUID CONTINUATION 1,000 ML IV ONE ×3 (10:50→12:15)
[2023-10-07] MEDS: LIDOCAINE 1% (10MG/ML) FOR IV START INTRADERMA PRN (10:51)
[2023-10-07] MEDS ORDERED: LIDOCAINE 1% INJ 10MG/ML (20 ML MDV) ONE (11:59)
[2023-10-07] MEDS ORDERED: PROPOFOL 10 MG/ML 20 ML VIAL IV ONE (11:59)
--- NOTE | 2023-10-07 12:02 | P.GSHP ---
History of Present Illness H&P Date: 10/07/23 Chief Complaint: Screening colonoscopy This is a 62-year-old male who presents today for screening colonoscopy. Patient denies any significant GI complaints. Past Medical History Past Medical History: Hyperlipidemia, Hypertension, Thyroid Disorder History of Any Multi-Drug Resistant Organisms: None Reported Past Surgical History: Appendectomy, Heart Catheterization With Stent Additional Past Surgical History / Comment(s): stent X2 april 2022. COLONOSCOPY Past Anesthesia/Blood Transfusion Reactions: No Reported Reaction Date of Last Stent Placement:: apr 2022 Smoking Status: Former smoker - Past Family History Mother Family Medical History: No Reported History Additional Family Medical History / Comment(s): due to alcoholism Medications and Allergies Home Medications Medication Instructions Recorded Confirmed Type Aspirin 81 mg PO DAILY 03/28/22 10/02/23 History Levothyroxine Sodium [Synthroid] 100 mcg PO DAILY 03/28/22 10/02/23 History Atorvastatin Calcium [Lipitor] 80 mg PO HS #90 tablet 03/30/22 10/02/23 Rx Nitroglycerin Sl Tabs [Nitrostat] 0.4 mg SUBLINGUAL Q5M PRN #100 tab 03/30/22 10/02/23 Rx Prasugrel [Effient] 10 mg PO DAILY #90 tablet 03/30/22 10/02/23 Rx Isosorbide Mononitrate ER [Imdur] 30 mg PO DAILY 10/23/22 10/02/23 History Metoprolol Succinate (ER) [Toprol 25 mg PO DAILY 10/23/22 10/02/23 History XL] Losartan [Cozaar] 25 mg PO DAILY #90 tab 10/25/22 10/02/23 Rx Tamsulosin HCl [Flomax] 0.4 mg PO DAILY 10/02/23 10/02/23 History Allergies Allergy/AdvReac Type Severity Reaction Status Date / Time No Known Allergies Allergy Verified 10/02/23 15:24 Surgical - Exam Vital Signs Temp Pulse Resp BP Pulse Ox 97.2 F L 57 L 16 147/75 96 10/07/23 10:49 10/07/23 10:49 10/07/23 10:49 10/07/23 10:49 10/07/23 10:49 - General well developed, well nourished, no distress - Eyes PERRL - ENT normal pinna - Neck no masses - Respiratory normal expansion - Cardiovascular Rhythm: regular - Abdomen Abdomen: soft, non tender Assessment and Plan Plan: Will perform screening colonoscopy
--- NOTE | 2023-10-07 12:19 | P.OP ---
Date of Procedure: 10/07/23 Preoperative Diagnosis: Screening colonoscopy Postoperative Diagnosis: Normal colonoscopy Procedure(s) Performed: Colonoscopy Anesthesia: MAC Surgeon: Evert Yoder Pathology: none sent Condition: stable Disposition: PACU Description of Procedure: PROCEDURE: The patient was placed on the endoscopy table in the lateral position. Digital rectal examination was performed which revealed no abnormalities. The prostate was symmetrical without nodules. Flexible colonoscope was then placed in the patient's anus and passed throughout the entire colon. The ileocecal valve was visualized. The cecum, ascending, transverse, descending and sigmoid colon were normal. The rectum was normal as well. There were no masses, polyps or diverticula noted in the entire colon. SUMMARY OF FINDINGS: Normal colonoscopy.
[2023-10-07 12:31] VITALS: PULSE 51; RESP 16
[2023-10-07 12:53] VITALS: BP 149/86
== END 2023-10-07 13:14 | disposition home or self-care (01) ==
LOC: ORWHC2ENDO 10:00
PROVIDERS: ATTEND Surgery
DX: Z12.11 Encounter for screening for malignant neoplasm of colon (principal); E07.9 Disorder of thyroid, unspecified; E78.5 Hyperlipidemia, unspecified; I10 Essential (primary) hypertension; Z79.02 Long term (current) use of antithrombotics/antiplatelets; Z79.890 Hormone replacement therapy; Z87.891 Personal history of nicotine dependence; Z90.49 Acquired absence of other specified parts of digestive tract
CPT/HCPCS: 45378; J2001; J2704

== ENCOUNTER 2023-10-16 05:45 | Day surgery (SDC) | payer OTHER ==
[2023-10-14 16:22] VITALS: BMI 29.1
[~2023-10-16 05:45] MED LIST changes: -ALPRAZolam 0.25 MG TAB PO PRN; -ALPRAZolam 0.5 MG TAB PO PRN; -ASPIRIN 325 MG TAB PO STA; +LIDOCAINE 1% (10MG/ML) FOR IV START INTRADERMA PRN; -NITROGLYCERIN SL TABS 0.4 MG TAB SUBLINGUAL PRN; -SODIUM CHLORIDE 0.9% 1,000 ML in EMPTY BAG 1 BAG IV SCH; +droPERidol 5 MG/2 ML VIAL IVP ONE
[2023-10-16] MEDS: IV FLUID CONTINUATION 1,000 ML IV ONE (06:18)
[2023-10-16] MEDS: ACETAMINOPHEN TAB 500 MG TAB PO PRN (06:54)
[2023-10-16] MEDS: ONDANSETRON 4 MG/2 ML VIAL IVP ONE (06:56)
[2023-10-16] MEDS: DEXAMETHASONE SOD PHOSPHATE 4 MG/ML 1 ML VIAL IV ONE (06:56)
[2023-10-16] MEDS ORDERED: HYDROmorphone 0.5 MG/0.5 ML SYRINGE IVP PRN (07:00)
[2023-10-16] MEDS: LACTATED RINGERS 1,000 ML IV SCH (07:04)
[2023-10-16 07:05] LABS: Basophils # (A) 0.1 k/uL (0-0.2); Basophils % (A) 1 %; Eosinophils # (A) 0.4 k/uL (0-0.7); Eosinophils % (A) 6 %; HCT 43.3 % (39.0-53.0); HGB 14.7 gm/dL (13.0-17.5); Lymphocytes # (A) 1.3 k/uL (1.0-4.8); Lymphocytes % (A) 22 %; MCH 32.1 pg (25.0-35.0); MCV 94.3 fL (80.0-100.0); Mean Platelet Volume 7.1; Monocytes # (A) 0.6 k/uL (0-1.0); Monocytes % (A) 10 %; Neutrophils # (A) 3.5 k/uL (1.3-7.7); Neutrophils % (A) 59 %; Platelet Count 286 k/uL (150-450); RBC 4.59 m/uL (4.30-5.90); RDW 12.7 % (11.5-15.5); WBC 5.9 k/uL (3.8-10.6)
[2023-10-16] MEDS: MIDAZOLAM 2 MG/2 ML VIAL IV ONE (07:20)
[2023-10-16] MEDS: HEPARIN SODIUM,PORCINE 5,000 UNIT/ML 1 ML VIAL SQ PRN (07:27)
[2023-10-16] MEDS ORDERED: SUCCINYLCHOLINE CHLORIDE 200 MG/10 ML VIAL IV ONE (07:30)
[2023-10-16] MEDS ORDERED: GLYCOPYRROLATE 0.2 MG/ML 2 ML VIAL ONE (07:30)
[2023-10-16] MEDS ORDERED: KETOROLAC 15 MG/ML 1 ML VIAL ONE (07:30)
[2023-10-16] MEDS ORDERED: fentaNYL (PF) 50 MCG/ML 2 ML AMP ONE (07:30)
[2023-10-16] MEDS ORDERED: NEOSTIGMINE 1 MG/ML 10 ML VIAL ONE (07:30)
[2023-10-16] MEDS ORDERED: ROPIVACAINE 5 MG/ML 30 ML VIAL ONE (07:30)
[2023-10-16] MEDS ORDERED: PROPOFOL 10 MG/ML 20 ML VIAL IV ONE (07:30)
[2023-10-16] MEDS ORDERED: ROCURONIUM 10 MG/ML (5 ML VIAL) IV ONE (07:30)
[2023-10-16] MEDS ORDERED: KETAMINE HCL IN 0.9 % NACL 50 MG/5 ML SYRINGE ONE (07:30)
[2023-10-16] MEDS ORDERED: SODIUM CHLORIDE 0.9% (PF) 10 ML VIAL ONE (07:30)
[2023-10-16] MEDS ORDERED: LIDOCAINE 1% INJ 10MG/ML (20 ML MDV) ONE (07:30)
[2023-10-16] MEDS: LIDOCAINE 1%-EPI 1:100,000 20 ML VIAL SQ ONE (07:54)
[2023-10-16] MEDS: LACTATED RINGERS 1,000 ML IV ONE (08:26)
--- NOTE | 2023-10-16 08:35 | P.OP ---
Date of Procedure: 10/16/23 Preoperative Diagnosis: Incarcerate umbilical hernia Postoperative Diagnosis: Incarcerate umbilical hernia Procedure(s) Performed: Laparoscopic robotic assisted pair of incarcerated local hernia Partial contact me Transversus abdominis plane block Anesthesia: RIRI Surgeon: Evert Yoder Estimated Blood Loss (ml): 5 Pathology: other (Omentum) Condition: stable Disposition: PACU Description of Procedure: The patient was placed on the operating table in the supine position. He received general anesthesia. His abdomen was prepped and draped usual fashion. Using a 5 mm optical trocar under direct visualization the peritoneal cavity was entered in the left upper quadrant. The abdomen was then insufflated. The laparoscope was placed back into the perineal cavity. Next a 8 mm robotic trocar was placed in the left lower quadrant and a 12 mm robotic trocar was placed in the left lateral position. The original 5 mm trocar was exchanged for a 8 mm robotic trocar. A four-quadrant transversus abdominis plane block was performed with 1% local Xylocaine. The patient's placed in the left side up position. And the patient was docked the robot. The umbilical hernia was visualized. Using hook cautery the peritoneum over the umbilical hernia was excised. Karsh omentum was dissected free sent to pathology. The fascial opening was repaired using 0V LOC suture. Next a piece of 11 cm round ventral light ST mesh was placed into the. Cavity and secured with 2 OV lock suture. The patient was undocked the robot. The needles were retrieved. The fascia of the 12 mm trocar site was closed with 0 Ethibond suture. Skin was closed interrupted 3-0 Monocryl suture. Dermabond dressings was applied. Patient top procedure well and was sent to recovery room stable condition.
[2023-10-16 08:45] VITALS: RESP 16; TEMP 97
[2023-10-16 10:54] VITALS: BP 143/66; PULSE 60
--- NOTE | 2023-10-17 12:18 | P.ANPRN ---
Procedure Note - Anesthesia - Nerve Block Performed Bilateral Rectus Abdominis Single Time Out Performed: Yes Date of Procedure: 10/17/23 Procedure Start Time: : Procedure Stop Time: Location of Patient: PreOp Indication: Acute Post-Operative Pain, Requested by Surgeon Sedation Type: Sedate with meaningful contact maintained Preparation: Sterile Prep Position: Supine Needle Types: Pajunk Needle Gauge: 21 Ultrasound used to visualize needle placement: Yes Ultrasound used to observe medication spread: Yes (Ropivacaine 0.5% 20 cc plus dexamethasone 4 mg given bilaterally)
== END 2023-10-16 11:34 | disposition home or self-care (01) ==
LOC: OR 05:45
PROVIDERS: ATTEND Surgery
DX: K42.0 Umbilical hernia with obstruction, without gangrene (principal); I10 Essential (primary) hypertension; I25.10 Atherosclerotic heart disease of native coronary artery without angina pectoris; E78.5 Hyperlipidemia, unspecified; E07.9 Disorder of thyroid, unspecified; Z79.899 Other long term (current) drug therapy
CPT/HCPCS: 64488; 85025; 49592; C1781; J2250; J0330; J1644; J1100; J2710; J0690; J2405; J2001; J3010; J2795; J1885; J2704; J1596; 88302